=== PATIENT | male | born 1960 | race Two or more races ===

== ENCOUNTER 2019-02-03 09:56 | Inpatient (IN) | payer OTHER ==
[2019-02-03 11:27] VITALS: BMI 25.5
--- NOTE | 2019-02-03 12:58 | HP ---
CIWA Score Nausea/Vomitin-No Nausea/No Vomiting Muscle Tremors: 4-Moderate,w/Arms Extend Anxiety: 4-Mod. Anxious/Guarded Agitation: 4-Moderately Restless Paroxysmal Sweats: 3 Orientation: 0-Oriented Tacttile Disturbances: 0-None Auditory Disturbances: 0-None Visual Disturbances: 0-None Headache: 0-None Present CIWA-Ar Total Score: 15 - Admission Criteria OASAS Guidelines: Admission for Medically Managed Detox: Requires at least one of the followin. CIWA greater than 12 2. Seizures within the past 24 hours 3. Delirium tremens within the past 24 hours 4. Hallucinations within the past 24 hours 5. Acute intervention needed for co occurring medical disorder 6. Acute intervention needed for co occurring psychiatric disorder 7. Severe withdrawal that cannot be handled at a lower level of care (continued vomiting, continued diarrhea, abnormal vital signs) requiring intravenous medication and/or fluids 8. Admission ROS S - [facility] Chief Complaint: I am here to detox and stop drinking Allergies/Adverse Reactions: Allergies Allergy/AdvReac Type Severity Reaction Status Date / Time No Known Allergies Allergy Verified 10/24/13 13:55 History of Present Illness: Pt is a 58yrold male with a history of alcohol dependence seeking detox for treatment. Exam Limitations: No Limitations - Ebola screening Have you traveled outside of the country in the last 21 days: No (N) Have you had contact with anyone from an Ebola affected area: No Have you been sick,other than usual withdrawal symptoms: No Do you have a fever: No - Review of Systems Constitutional: Diaphoresis EENT: reports: No Symptoms Reported Respiratory: reports: No Symptoms reported Cardiac: reports: No Symptoms Reported GI: reports: Poor Appetite, Poor Fluid Intake : reports: No Symptoms Reported Musculoskeletal: reports: No Symptoms Reported Integumentary: reports: Bruising (to left lower chin, bump noted. pt states he fell yesterday and didnt have it checked out.) Neuro: reports: Tingling, Tremors Endocrine: reports: Flushing, Intolerance to Heat, Increased Hunger Hematology: reports: No Symptoms Reported Psychiatric: reports: Judgement Intact, Mood/Affect Appropiate, Orientated x3, Agitated, Anxious Other Systems: Reviewed and Negative Patient History - Patient Medical History Hx Anemia: No Hx Asthma: No Hx Chronic Obstructive Pulmonary Disease (COPD): No Hx Cancer: No Hx Cardiac Disorders: No Hx Congestive Heart Failure: No Hx Hypertension: Yes Hx Hypercholesterolemia: No Hx Pacemaker: No HX Cerebrovascular Accident: No Hx Seizures: No Hx Dementia: No Hx Diabetes: No Hx Gastrointestinal Disorders: No Hx Liver Disease: No Hx Genitourinary Disorders: No Hx Sexually Transmitted Disorders: No Hx Renal Disease (ESRD): No Hx Thyroid Disease: No Hx Human Immunodeficiency Virus (HIV): No (negative) Hx Hepatitis C: No (negative) Hx Depression: Yes Hx Suicide Attempt: No Hx Bipolar Disorder: No Hx Schizophrenia: No - Patient Surgical History Past Surgical History: Yes Other Surgical History: 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 History Hx Alcohol Use: Yes Hx Substance Use: No Substance Use Type: Alcohol Hx Substance Use Treatment: Yes (last detox 2013 [facility]) - Substances abused Alcohol Substance route: Oral Frequency: Daily Amount used: 3 pints vodka Age of first use: 29 Date of last use: 02/02/19 Family Disease History - Family Disease History Family History: Denies Admission Physical Exam S - Vital Signs Vital Signs: Vital Signs - 24 hr 02/03/19 11:22 Temperature 98 F Pulse Rate 99 H Respiratory 19 Rate Blood Pressure 151/80 - Physical General Appearance: Yes: Appropriately Dressed, Moderate Distress, Tremorous, Irritable, Sweating, Anxious HEENTM: Yes: Hearing grossly Normal, Normal Voice, Nasal Congestion, Rhinorrhea Respiratory: Yes: Lungs Clear, Normal Breath Sounds, No Respiratory Distress Neck: Yes: No masses,lesions,Nodules Breast: Yes: Surgical Scar Cardiology: Yes: Regular Rhythm, Surgical Scar Abdominal: Yes: Surgical Scar (pt has surgical scar from chest,abdominal d/t endosarcoma repair 2008) Genitourinary: Yes: Within Normal Limits Back: Yes: Normal Inspection Musculoskeletal: Yes: full range of Motion Extremities: Yes: Normal Capillary Refill, Non-Tender, Tremors Neurological: Yes: Fully Oriented, Alert, Normal Response Integumentary: Yes: Normal Color, Diaphoresis Lymphatic: Yes: Within Normal Limits - Diagnostic (1) Chondrosarcoma of ribs, sternum, 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 (2) Depression Current Visit: Yes Status: Chronic (3) Alcohol dependence with uncomplicated withdrawal Current Visit: Yes Status: Chronic (4) Nicotine dependence Current Visit: Yes Status: Chronic Qualifiers: Nicotine product type: cigarettes Substance use status: uncomplicated Qualified Code(s): F17.210 - Nicotine dependence, cigarettes, uncomplicated (5) Hypertension Current Visit: Yes Status: Chronic Qualifiers: Hypertension type: essential hypertension Qualified Code(s): I10 - Essential (primary) hypertension (6) Traumatic ecchymosis of left lower leg Current Visit: Yes Status: Acute Qualifiers: Encounter type: initial encounter Qualified Code(s): S80.12XA - Contusion of left lower leg, initial encounter Comment: pt states he fell yesterday. did not go to ed for evluation Cleared for Admission S - Detox or Rehab [facility] Level of Care: Medically Managed Detox Regimen/Protocol: Librium Breathalyzer - Breathalyzer Breathalyzer: 0.059 Urine Drug Screen - Test Device Lot number: [id number] Expiration date: 10/29/20 - Control Is test valid?: Yes - Results Drug screen NEGATIVE: Yes Inpatient Rehab Admission - Rehab Decision to Admit Inpatient rehab admission?: No
[2019-02-03] MEDS ORDERED: IBUPROFEN 400 MG TABLET (FP) PO PRN (13:14)
[2019-02-03] MEDS ORDERED: MAGNESIUM CITRATE 300 ML BOTTLE PO PRN (13:14)
[2019-02-03] MEDS ORDERED: BISMUTH SUBSALICYLATE 524 MG/30 ML UD PO PRN (13:14)
[2019-02-03] MEDS ORDERED: NICOTINE POLACRILEX 4 MG GUM BUC PRN (13:14)
[2019-02-03] MEDS ORDERED: ACETAMINOPHEN 325 MG TABLET (FP) PO PRN ×2 (13:14)
[2019-02-03] MEDS ORDERED: METHOCARBAMOL 500 MG TABLET PO PRN (13:14)
[2019-02-03] MEDS ORDERED: MENTHOL/PHENOL 1 EACH UD MM PRN (13:14)
[2019-02-03] MEDS ORDERED: MAGNESIUM HYDROX 2400MG/30ML ORAL SUSPENSION 30 ML CUP PO PRN (13:14)
[2019-02-03] MEDS ORDERED: chlordiazePOXIDE HCL 25 MG CAPSULE PO PRN (13:14)
[2019-02-03] MEDS ORDERED: hydrOXYzine PAMOATE 25 MG CAPSULE (FP) PO PRN (13:14)
[2019-02-03] MEDS ORDERED: MAG HYDROX/AL HYDROX/SIMETH 30 ML UNIT-DOSE CUP PO PRN (13:14)
[2019-02-03] MEDS ORDERED: ONDANSETRON *ODT* 4 MG TABLET SL PRN (13:14)
[2019-02-03] MEDS ORDERED: chlordiazePOXIDE HCL 25 MG CAPSULE PO ONE (14:15)
--- NOTE | 2019-02-03 14:43 | EKG ---
Test Reason : Blood Pressure : / mmHG Vent. Rate : 096 BPM Atrial Rate : 096 BPM P-R Int : 142 ms QRS Dur : 082 ms QT Int : 364 ms P-R-T Axes : 043 016 031 degrees QTc Int : 459 ms NORMAL SINUS RHYTHM NORMAL ECG NO PREVIOUS ECGS AVAILABLE Confirmed by JANET HENDRICKS, ALISIA ([id number]) on 02/03/2019 2:42:40 PM Referred By: Confirmed By:ALISIA GONZALES MD
[2019-02-03 16:39] LABS: HEMATOCRIT 46.7 % (35.4-49); HEMOGLOBIN 14.8 GM/dL (11.7-16.9); MCH 26.7 pg (25.7-33.7); MCHC 31.6 g/dl (32.0-35.9); MEAN CELL VOLUME 84.3 fl (80-96); MEAN PLT VOLUME 9.6 fl (7.5-11.1); PLATELET COUNT 227 K/MM3 (134-434); RBC 5.54 M/mm3 (4.00-5.60); RDW 14.4 % (11.9-15.9); WHITE BLOOD COUNT 10.9 K/mm3 (4.0-10.0)
[2019-02-03 16:41] LABS: ALBUMIN 4.3 g/dl (3.4-5.0); BILIRUBIN,TOTAL 0.4 mg/dL (0.2-1); CALCIUM 9.1 mg/dL (8.5-10.1); CREATININE 0.9 mg/dL (0.55-1.3); POTASSIUM 4.2 mmol/L (3.5-5.1)
--- NOTE | 2019-02-03 17:05 | PN ---
[facility] Progress Note Note: x-ray to left lower leg performed; no fx noted as per report. pt encouraged to apply ice pack as ordered and apply bacitracin oint.
[2019-02-03] MEDS: chlordiazePOXIDE HCL 25 MG CAPSULE PO SCH ×2 (17:45→22:20)
--- NOTE | 2019-02-03 18:00 | CONSULT ---
[facility] Psychiatric Consult - Data Date of interview: 02/03/19 Admission source: [facility] Identifying data: Readmission to [facility] for this 58 y/o [place]born male self-referred for detoxification (alcohol). Examined at [address] [place] [address]. Patient is , a father of two, homeless, unemployed and supported on [facility] benefits. Substance Abuse History: Confirmed by patient in this interview. Details in current [facility] report as follows : Smoking history: Current every day smoker. Have you smoked in the past 12 months: Yes. Aproximately how many cigarettes per day: 10. Cigars Per Day: 0. Hx Chewing Tobacco Use: No. Initiated information on smoking cessation: Yes. 'Breaking Loose' booklet given: . - Substance & Tx. History. Hx Alcohol Use: Yes. Hx Substance Use: No. Substance Use Type: Alcohol. Hx Substance Use Treatment: Yes (last detox 2014 [facility]). - Substances abused. Alcohol. Substance route: Oral. Frequency : Daily. Amount used: 3 pints vodka. Age of first use: 29. Date of last use: 02/02/19 Medical History: Remarkable for hypertension and history of 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 (2008). Psychiatric History: Patient admits to a history of [facility] hospital[facility] Diagnosed with MDD. Mr Garcia sees a psychiatrist for medication management at the [facility] clinic in the [place]. Medicated with seroquel and trazodone. Patient denies history of suicide attempts. Physical/Sexual Abuse/Trauma History: Patient denies. Additional Comment: Drug screen is negative. Mental Status Exam - Mental Status Exam Alert and Oriented to: Time, Place, Person Cognitive Function: Good Patient Appearance: Disheveled Mood: Nervous, Withdrawn, Anxious Affect: Mood Congruent, Constricted Patient Behavior: Fatigued, Appropriate, Cooperative Speech Pattern: Clear Voice Loudness: Moderately Soft/Quiet Thought Process: Goal Oriented Thought Disorder: Not Present Hallucinations: Denies Suicidal Ideation: Denies Homicidal Ideation: Denies Insight/Judgement: Poor Sleep: Poorly, Difficulty falling asleep Appetite: Good Muscle strength/Tone: Normal Gait/Station: Normal Psychiatric Findings - Problem List ([place] 1, 2,3) (1) Alcohol dependence with uncomplicated withdrawal Current Visit: Yes Status: Acute (2) Nicotine dependence Current Visit: Yes Status: Chronic Qualifiers: Nicotine product type: cigarettes Substance use status: uncomplicated Qualified Code(s): F17.210 - Nicotine dependence, cigarettes, uncomplicated (3) Substance induced mood disorder Current Visit: Yes Status: Chronic (4) History of depression Current Visit: Yes Status: Chronic (5) Insomnia Current Visit: Yes Status: Chronic - Initial Treatment Plan Initial Treatment Plan: Psychoeducation. Sleep hygiene. Detoxification. Medications : seroquel 100 mg po hs + trazodone 50 mg po hs. Side effects/ benefits of these dugs are discussed with patient. Made aware of the risk of metabolic syndrome, oversedation and priapism. Mr Jose endorses good response to this regimen and he insists on its continuation in hospital course. Observation. Medication reconciliation : NO home medications. External pharmacy activity revisited at [facility] # [id number] : noted refills for trazodone 100 mg/hs + seroquel 400 mg/hs + zoloft 100 mg/day dated 11/11/18. Call made to [facility] at : busy line/kept on indefinite hold.
[2019-02-03] MEDS: BACITRACIN 15 GM TUBE TOPICAL OINTMENT TP SCH (19:42)
[2019-02-03] MEDS ORDERED: METOPROLOL TARTRATE 50 MG TABLET (FP) PO ONE (19:42)
[2019-02-03] MEDS ORDERED: cloNIDine HCL 0.1 MG TABLET PO ONE (19:43)
[2019-02-03] MEDS: THIAMINE HCL 100 MG TABLET (FP) PO SCH (22:19)
[2019-02-03] MEDS: QUEtiapine FUMARATE 100 MG TABLET (FP) PO SCH (22:20)
[2019-02-03] MEDS: MELATONIN 5 MG TABLETS PO PRN (22:20)
[2019-02-03] MEDS: traZODone HCL 50 MG TABLET (FP) PO SCH (22:20)
[2019-02-04] MEDS: chlordiazePOXIDE HCL 25 MG CAPSULE PO SCH ×4 (07:06→22:29)
[2019-02-04] MEDS: PANTOPRAZOLE 40 MG TABLET (FP) PO SCH (10:45)
[2019-02-04] MEDS: NICOTINE 21 MG/24 HOURS TOPICAL PATCH TD SCH (10:45)
[2019-02-04] MEDS: METOPROLOL TARTRATE 50 MG TABLET (FP) PO SCH (10:45)
[2019-02-04] MEDS: PRENATAL VITAMINS W/ FOLIC ACID TABLET (FP) PO SCH (10:46)
[2019-02-04] MEDS: BACITRACIN 15 GM TUBE TOPICAL OINTMENT TP SCH (10:46)
--- NOTE | 2019-02-04 17:02 | PN ---
[facility] CIWA - CIWA Score Nausea/Vomitin-No Nausea/No Vomiting Muscle Tremors: 4-Moderate,w/Arms Extend Anxiety: 3 Agitation: 0-Normal Activity Paroxysmal Sweats: No Perspiration Orientation: 0-Oriented Tacttile Disturbances: 0-None Auditory Disturbances: 2-Mild Harshness/Frighten Visual Disturbances: 2-Mild Sensitivity Headache: 0-None Present CIWA-Ar Total Score: 11 S Progress Note (SOAP) Subjective: Body Aches, Tremors. Objective: PATIENT A & O X 3. IN NO ACUTE DISTRESS. 02/04/19 17:00 Vital Signs Temperature 97.7 F 02/04/19 14:18 Pulse Rate 72 02/04/19 14:18 Respiratory Rate 18 02/04/19 14:18 Blood Pressure 117/85 02/04/19 14:18 O2 Sat by Pulse Oximetry (%) Laboratory Tests 02/03/19 02/03/19 02/03/19 13:30 13:30 13:30 WBC 10.9 H RBC 5.54 Hgb 14.8 Hct 46.7 MCV 84.3 MCH 26.7 MCHC 31.6 L RDW 14.4 Plt Count 227 MPV 9.6 D Sodium 137 Potassium 4.2 Chloride 100 Carbon Dioxide 25 Anion Gap 12 BUN 13 Creatinine 0.9 Est GFR (CKD-EPI)AfAm 107.97 Est GFR (CKD-EPI)NonAf 93.16 Random Glucose 110 H Calcium 9.1 Total Bilirubin 0.4 AST 18 ALT 31 Alkaline Phosphatase 103 Total Protein 9.0 H Albumin 4.3 RPR Titer Nonreactive LABS NOTED. Assessment: 02/04/19 17:00 WITHDRAWAL SYMPTOMS. LEUKOCYTOSIS. Plan: CONTINUE DETOX. INCREASE DAILY PO FLUID / WATER INTAKE. REPEAT CBC TOMORROW AM FOR ELEVATED WBC LEVEL NOTED ON DETOX ADMISSION.
[2019-02-04] MEDS: THIAMINE HCL 100 MG TABLET (FP) PO SCH (22:29)
[2019-02-04] MEDS: traZODone HCL 50 MG TABLET (FP) PO SCH (22:29)
[2019-02-04] MEDS: QUEtiapine FUMARATE 100 MG TABLET (FP) PO SCH (22:29)
[2019-02-04] MEDS: MELATONIN 5 MG TABLETS PO PRN (22:30)
[2019-02-05] MEDS: chlordiazePOXIDE HCL 25 MG CAPSULE PO SCH ×2 (05:36→11:21)
[2019-02-05] MEDS: PANTOPRAZOLE 40 MG TABLET (FP) PO SCH (11:21)
[2019-02-05] MEDS: NICOTINE 21 MG/24 HOURS TOPICAL PATCH TD SCH (11:22)
[2019-02-05] MEDS: BACITRACIN 15 GM TUBE TOPICAL OINTMENT TP SCH (11:22)
[2019-02-05] MEDS: PRENATAL VITAMINS W/ FOLIC ACID TABLET (FP) PO SCH (11:22)
[2019-02-05] MEDS: METOPROLOL TARTRATE 50 MG TABLET (FP) PO SCH (11:22)
--- NOTE | 2019-02-05 17:26 | PN ---
[facility] CIWA - CIWA Score Nausea/Vomitin-No Nausea/No Vomiting Muscle Tremors: 2 Anxiety: 3 Agitation: 0-Normal Activity Paroxysmal Sweats: No Perspiration Orientation: 0-Oriented Tacttile Disturbances: 2-Mild Itch/Numbness/Burn Auditory Disturbances: 0-None Visual Disturbances: 2-Mild Sensitivity Headache: 0-None Present CIWA-Ar Total Score: 9 BHS Progress Note (SOAP) Subjective: Body Aches, Anxious, Tremors. Objective: PATIENT A & O X 3, OBSERVED AMBULATING ON UNIT UNASSISTED. IN NO ACUTE DISTRESS. PATIENT AFEBRILE. 02/05/19 17:25 Vital Signs Temperature 97.2 F L 02/05/19 13:14 Pulse Rate 89 02/05/19 13:14 Respiratory Rate 16 02/05/19 13:14 Blood Pressure 124/89 02/05/19 13:14 O2 Sat by Pulse Oximetry (%) Laboratory Tests 02/03/19 02/03/19 02/03/19 13:30 13:30 13:30 WBC 10.9 H RBC 5.54 Hgb 14.8 Hct 46.7 MCV 84.3 MCH 26.7 MCHC 31.6 L RDW 14.4 Plt Count 227 MPV 9.6 D Sodium 137 Potassium 4.2 Chloride 100 Carbon Dioxide 25 Anion Gap 12 BUN 13 Creatinine 0.9 Est GFR (CKD-EPI)AfAm 107.97 Est GFR (CKD-EPI)NonAf 93.16 Random Glucose 110 H Calcium 9.1 Total Bilirubin 0.4 AST 18 ALT 31 Alkaline Phosphatase 103 Total Protein 9.0 H Albumin 4.3 RPR Titer Nonreactive LABS NOTED. 02/05/19 17:31 Assessment: 02/05/19 17:25 WITHDRAWAL SYMPTOMS. LEUKOCYTOSIS. 02/05/19 17:27 Plan: CONTINUE DETOX. REPEAT CBC FOR TOMORROW FOR ELEVATED ADMISSION WBC LEVEL. PATIENT REPORTS PAIN IN LOWER LEFT LEG DUE TO FALL THAT HE HAD ON STEPS IN [place] STATION PRIOR TO ADMISSION TO DETOX. X-RAY OF LEFT LEG DONE AT [facility] ER - NEGATIVE FOR ACUTE LEFT LEG PATHOLOGY. SWELLING NOTED IN LOWER LEFT LEG WITH SMALL HEALING, SCABBING WOUND NOTED ON TIBIA SLIGHTLY BELOW LEFT KNEE AREA. NO ERYTHEMA OR UNUSUAL DISCHARGE NOTED IN LEFT LOWER LEG. PATIENT ADVISED APPLY R.I.C.E. PROTOCOL: TO KEEP LEFT LEG ELEVATED IN BED MUCH POSSIBLE FOR TIME BEING AND TO APPLY ICE A FEW TIMES THROUGHOUT DAY. PATIENT ADVISED TO FOLLOW-UP WITH MOVEMENT THERAPIST AFTER DISCHARGE FROM DETOX UNIT FOR FURTHER EVALUATION OF LEFT LEG. PATIENT VERBALIZED UNDERSTANDING OF ALL RECOMMENDATION PRESENTED TO HIM.
[2019-02-05] MEDS: chlordiazePOXIDE HCL 10 MG CAPSULE PO SCH ×2 (17:27→22:10)
[2019-02-05] MEDS: THIAMINE HCL 100 MG TABLET (FP) PO SCH (22:09)
[2019-02-05] MEDS: traZODone HCL 50 MG TABLET (FP) PO SCH (22:09)
[2019-02-05] MEDS: QUEtiapine FUMARATE 100 MG TABLET (FP) PO SCH (22:10)
[2019-02-06] MEDS: chlordiazePOXIDE HCL 10 MG CAPSULE PO SCH ×2 (06:03→10:43)
[2019-02-06 06:19] VITALS: BP 140/94; PULSE 101; TEMP 97.5
[2019-02-06] MEDS: PRENATAL VITAMINS W/ FOLIC ACID TABLET (FP) PO SCH (10:43)
[2019-02-06] MEDS: METOPROLOL TARTRATE 50 MG TABLET (FP) PO SCH (10:43)
[2019-02-06] MEDS: BACITRACIN 15 GM TUBE TOPICAL OINTMENT TP SCH (10:43)
[2019-02-06] MEDS: NICOTINE 21 MG/24 HOURS TOPICAL PATCH TD SCH (10:43)
[2019-02-06] MEDS: PANTOPRAZOLE 40 MG TABLET (FP) PO SCH (10:43)
--- NOTE | 2019-02-06 13:01 | DS ---
[facility] Detox Discharge Summary Admission Date: 02/03/19 Discharge Date: 02/06/19 (Pt left AMA) - History Present History: Alcohol Dependence Additional Comments: Pt left AMA. Pt did not complete his detox protocol. Pt stated he has to leave because he has to take care of something. Attempt to let pt stay and complete his detox protocol failed. Pt is encouraged to follow-up with his PMD and also follow-up with [facility] outpatient program. Pt is AOx3, in no respiratory distress. Pertinent Past History: H/o HTN and alcohol use disorder. - Physical Exam Results Vital Signs: Vital Signs Temperature 97.5 F L 02/06/19 06:19 Pulse Rate 101 H 02/06/19 06:19 Respiratory Rate 18 02/06/19 06:19 Blood Pressure 140/94 02/06/19 06:19 O2 Sat by Pulse Oximetry (%) Lab Results WBC 10.9 K/mm3 (4.0-10.0) H 02/03/19 13:30 RBC 5.54 M/mm3 (4.00-5.60) 02/03/19 13:30 Hgb 14.8 GM/dL (11.7-16.9) 02/03/19 13:30 Hct 46.7 % (35.4-49) 02/03/19 13:30 MCV 84.3 fl (80-96) 02/03/19 13:30 MCHC 31.6 g/dl (32.0-35.9) L 02/03/19 13:30 RDW 14.4 % (11.9-15.9) 02/03/19 13:30 Plt Count 227 K/MM3 (134-434) 02/03/19 13:30 Sodium 137 mmol/L (136-145) 02/03/19 13:30 Potassium 4.2 mmol/L (3.5-5.1) 02/03/19 13:30 Chloride 100 mmol/L (98-107) 02/03/19 13:30 Carbon Dioxide 25 mmol/L (21-32) 02/03/19 13:30 Anion Gap 12 MMOL/L (8-16) 02/03/19 13:30 BUN 13 mg/dL (7-18) 02/03/19 13:30 Creatinine 0.9 mg/dL (0.55-1.3) 02/03/19 13:30 Random Glucose 110 mg/dL (74-106) H 02/03/19 13:30 Calcium 9.1 mg/dL (8.5-10.1) 02/03/19 13:30 Labs noted. Pertinent Admission Physical Exam Findings: withdrawal symptoms. - Treatment Hospital Course: Detox Protocol Followed - Medication Discharge Medications: Ambulatory Orders Omeprazole [Prilosec (RX)] 20 mg PO DAILY 10/24/13 Metoprolol Tartrate 100 mg PO DAILY 02/03/19 - Diagnosis (1) Alcohol dependence with uncomplicated withdrawal Current Visit: Yes Status: Acute (2) Hypertension Current Visit: Yes Status: Chronic Qualifiers: Hypertension type: essential hypertension Qualified Code(s): I10 - Essential (primary) hypertension (3) Nicotine dependence Current Visit: Yes Status: Chronic Qualifiers: Nicotine product type: cigarettes Substance use status: uncomplicated Qualified Code(s): F17.210 - Nicotine dependence, cigarettes, uncomplicated - AMA Did Patient Leave Against Medical Advice: Yes
[2019-02-06] MEDS ORDERED: chlordiazePOXIDE HCL 10 MG CAPSULE PO SCH (17:00)
== END 2019-02-06 09:50 | disposition left against medical advice (07) | DRG 894 ==
LOC: YASAS 09:56 → Y3N 13:15
PROVIDERS: ADMIT Surgery; ATTEND Surgery
PROC: HZ2ZZZZ Detoxification Services for Substance Abuse Treatment (ICD-10-PCS; principal; 2019-02-03)
DX: F10.230 Alcohol dependence with withdrawal, uncomplicated (principal); F17.210 Nicotine dependence, cigarettes, uncomplicated; F19.24 Other psychoactive substance dependence with psychoactive substance-induced mood disorder; F32.9 Major depressive disorder, single episode, unspecified; I10 Essential (primary) hypertension; D72.828 Other elevated white blood cell count; G47.00 Insomnia, unspecified
CPT/HCPCS: 36415; 73590-TC-LT-FY; 80053; 85027; 86593; 93005; 93010

== ENCOUNTER 2019-04-18 09:11 | Inpatient (IN) | payer OTHER ==
[2019-04-18 09:40] VITALS: BMI 25.4
--- NOTE | 2019-04-18 11:21 | HP ---
CIWA Score Nausea/Vomitin Muscle Tremors: 3 Anxiety: 2 Agitation: 2 Paroxysmal Sweats: 1-Minimal Palms Moist Orientation: 0-Oriented Tacttile Disturbances: 1-Very Mild Itch/Numbness Auditory Disturbances: 0-None Visual Disturbances: 0-None Headache: 2-Mild CIWA-Ar Total Score: 13 - Admission Criteria OASAS Guidelines: Admission for Medically Managed Detox: Requires at least one of the followin. CIWA greater than 12 2. Seizures within the past 24 hours 3. Delirium tremens within the past 24 hours 4. Hallucinations within the past 24 hours 5. Acute intervention needed for co occurring medical disorder 6. Acute intervention needed for co occurring psychiatric disorder 7. Severe withdrawal that cannot be handled at a lower level of care (continued vomiting, continued diarrhea, abnormal vital signs) requiring intravenous medication and/or fluids 8. Admission ROS [facility] - HPI Chief Complaint: i need help to stop drinking alcohol Allergies/Adverse Reactions: Allergies Allergy/AdvReac Type Severity Reaction Status Date / Time No Known Allergies Allergy Verified 04/18/19 09:29 History of Present Illness: this 59 years old male with alcohol dependence,seeking detox,withdrawal symptom, seen in [place] last night history of hypertension syncope no seizure hypertension on med nicotine 1 or 2 cigarette/day had chondrocsarcoma right chest wall ,mojor radical resectionl at [place] in 2008 multiple admissions in detox,last [facility] 02/03/19 to 02/06/18 no significant period of sobriety plan for rehab after detox [facility] Exam Limitations: No Limitations - Ebola screening Have you traveled outside of the country in the last 21 days: No (N) Have you had contact with anyone from an Ebola affected area: No Do you have a fever: No - Review of Systems Constitutional: Malaise, Night Sweats, Changes in sleep EENT: reports: Nose Congestion Respiratory: reports: No Symptoms reported Cardiac: reports: No Symptoms Reported GI: reports: Nausea, Poor Appetite, Indigestion : reports: No Symptoms Reported Integumentary: reports: Dryness Neuro: reports: Headache, Seizure Endocrine: reports: No Symptoms Reported Hematology: reports: No Symptoms Reported Psychiatric: reports: No Sypmtoms Reported, Judgement Intact, Mood/Affect Appropiate, Orientated x3 (insomnia) Other Systems: Reviewed and Negative Patient History - Patient Medical History Hx Anemia: No Hx Asthma: No Hx Chronic Obstructive Pulmonary Disease (COPD): No Hx Cancer: No Hx Cardiac Disorders: No Hx Congestive Heart Failure: No Hx Hypertension: Yes (on meds) Hx Hypercholesterolemia: No Hx Pacemaker: No HX Cerebrovascular Accident: No Hx Seizures: No Hx Dementia: No Hx Diabetes: No Hx Gastrointestinal Disorders: No Hx Liver Disease: No Hx Genitourinary Disorders: No Hx Sexually Transmitted Disorders: No Hx Renal Disease (ESRD): No Hx Thyroid Disease: No Hx Human Immunodeficiency Virus (HIV): No (negative 09/19) Hx Hepatitis C: No (negative) Hx Depression: Yes Hx Suicide Attempt: No Hx Bipolar Disorder: No Hx Schizophrenia: No Other Medical History: insomnia,no suicida,no homicidal,major surgery for chondrosarcoma od right - Patient Surgical History Past Surgical History: Yes Other Surgical History: 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 History Hx Alcohol Use: Yes Hx Substance Use: No Substance Use Type: Alcohol Hx Substance Use Treatment: Yes ([facility] 02/03/19 to 02/06/19) - Substances abused Alcohol Substance route: Oral Frequency: Daily Amount used: 3 pints vodka and fern Age of first use: 29 Date of last use: 04/17/19 Family Disease History - Family Disease History Family History: Denies Admission Physical Exam [facility] - Vital Signs Vital Signs: Vital Signs - 24 hr 04/18/19 09:30 Temperature 97.4 F L Pulse Rate 78 Respiratory 18 Rate Blood Pressure 158/104 H - Physical General Appearance: Yes: Moderate Distress, Tremorous, Irritable, Sweating, Anxious HEENTM: Yes: Normal ENT Inspection, BUDDY, Pharynx Normal Respiratory: Yes: Lungs Clear, Normal Breath Sounds, No Respiratory Distress, Surgical Scar (scar in right chest and abdomen) Neck: Yes: Within Normal Limits, Supple, Trachea in good position Breast: Yes: Within Normal Limits Cardiology: Yes: Within Normal Limits, Regular Rhythm, Regular Rate, S1, S2 Abdominal: Yes: Within Normal Limits, Normal Bowel Sounds, Non Tender, Flat, Surgical Scar Genitourinary: Yes: Within Normal Limits Back: Yes: Muscle Spasm Musculoskeletal: Yes: Back pain, Muscle Pain Extremities: Yes: Normal Range of Motion, Tremors Neurological: Yes: mutuel teller II-XII NML intact, Alert, Motor Strength 5/5 Integumentary: Yes: Dry Lymphatic: Yes: Within Normal Limits - Diagnostic (1) Alcohol dependence with uncomplicated withdrawal Status: Acute (2) Chondrosarcoma of ribs, sternum, or clavicle Status: Chronic (3) Depression Status: Chronic (4) Hypertension Status: Chronic Qualifiers: Hypertension type: essential hypertension Qualified Code(s): I10 - Essential (primary) hypertension (5) Insomnia Status: Chronic (6) Nicotine dependence Status: Acute Qualifiers: Nicotine product type: cigarettes Substance use status: in withdrawal Qualified Code(s): F17.213 - Nicotine dependence, cigarettes, with withdrawal (7) Syncope Status: Acute (8) Borderline diabetes mellitus Status: Acute Cleared for Admission S - Detox or Rehab [facility] Level of Care: Medically Managed Detox Regimen/Protocol: Librium Breathalyzer - Breathalyzer Breathalyzer: 0.059 Urine Drug Screen - Test Device Lot number: [id number] Expiration date: 10/29/20 - Control Is test valid?: Yes - Results Drug screen NEGATIVE: Yes Inpatient Rehab Admission - Rehab Decision to Admit Inpatient rehab admission?: No
[2019-04-18] MEDS ORDERED: METHOCARBAMOL 500 MG TABLET PO PRN (11:30)
[2019-04-18] MEDS ORDERED: chlordiazePOXIDE HCL 25 MG CAPSULE PO PRN (11:30)
[2019-04-18] MEDS ORDERED: MELATONIN 5 MG TABLETS PO PRN (11:30)
[2019-04-18] MEDS ORDERED: MAGNESIUM HYDROX 2400MG/30ML ORAL SUSPENSION 30 ML CUP PO PRN (11:30)
[2019-04-18] MEDS ORDERED: MAG HYDROX/AL HYDROX/SIMETH 30 ML UNIT-DOSE CUP PO PRN (11:30)
[2019-04-18] MEDS ORDERED: IBUPROFEN 400 MG TABLET (FP) PO PRN (11:30)
[2019-04-18] MEDS ORDERED: ACETAMINOPHEN 325 MG TABLET (FP) PO PRN ×2 (11:30)
[2019-04-18] MEDS ORDERED: hydrOXYzine PAMOATE 25 MG CAPSULE (FP) PO PRN (11:30)
[2019-04-18] MEDS ORDERED: MAGNESIUM CITRATE 300 ML BOTTLE PO PRN (11:30)
[2019-04-18] MEDS ORDERED: BISMUTH SUBSALICYLATE 524 MG/30 ML UD PO PRN (11:30)
[2019-04-18] MEDS ORDERED: MENTHOL/PHENOL 1 EACH UD MM PRN (11:30)
[2019-04-18] MEDS: METOPROLOL TARTRATE 50 MG TABLET (FP) PO SCH (12:41)
[2019-04-18] MEDS: chlordiazePOXIDE HCL 25 MG CAPSULE PO SCH ×2 (17:41→22:50)
[2019-04-18] MEDS: THIAMINE HCL 100 MG TABLET (FP) PO SCH (22:50)
[2019-04-19] MEDS: chlordiazePOXIDE HCL 25 MG CAPSULE PO SCH ×4 (05:44→22:16)
[2019-04-19] MEDS: PRENATAL VITAMINS W/ FOLIC ACID TABLET (FP) PO SCH (10:21)
[2019-04-19] MEDS: METOPROLOL TARTRATE 50 MG TABLET (FP) PO SCH (10:22)
--- NOTE | 2019-04-19 10:58 | PN ---
[facility] CIWA - CIWA Score Nausea/Vomitin-Mild Nausea/No Vomiting Muscle Tremors: 3 Anxiety: 3 Agitation: 1-Slight > Activity Paroxysmal Sweats: 2 Orientation: 0-Oriented Tacttile Disturbances: 1-Very Mild Itch/Numbness Auditory Disturbances: 0-None Visual Disturbances: 0-None Headache: 1-Very Mild CIWA-Ar Total Score: 12 [facility] Progress Note (SOAP) Subjective: 59 years old male admitted on 04/18/19 for acute alcohol withdrawal sx management doing well with [facility] detox regimen less tremor today long history of hypertension gerd hyper lipidemia begin metoprolol lipitor and zantac discontinue motrin Objective: 04/19/19 11:07 Vital Signs Temperature 97.5 F L 04/19/19 09:12 Pulse Rate 79 04/19/19 09:12 Respiratory Rate 18 04/19/19 09:12 Blood Pressure 153/97 04/19/19 09:12 O2 Sat by Pulse Oximetry (%) lab pending Assessment: 04/19/19 11:07 alcohol withdrawal sx alert oriented x 3
[2019-04-19 12:26] LABS: BILIRUBIN,TOTAL 0.8 mg/dL (0.2-1); BLOOD UREA NITROGEN 12.5 mg/dL (7-18); CALCIUM 8.9 mg/dL (8.5-10.1); HEMATOCRIT 40.7 % (35.4-49); HEMOGLOBIN 13.4 GM/dL (11.7-16.9); MCH 27.5 pg (25.7-33.7); MCHC 32.8 g/dl (32.0-35.9); MEAN CELL VOLUME 83.7 fl (80-96); MEAN PLT VOLUME 9.7 fl (7.5-11.1); PLATELET COUNT 193 K/MM3 (134-434); RBC 4.87 M/mm3 (4.00-5.60); RDW 14.6 % (11.9-15.9); TOT PROT 8.1 g/dl (6.4-8.2); WHITE BLOOD COUNT 7.9 K/mm3 (4.0-10.0)
[2019-04-19] MEDS: metoPROLOL SUCCINATE 25 MG TAB.SR.24H (FP) PO SCH (13:25)
[2019-04-19] MEDS: RANITIDINE HCL 150 MG TABLET (FP) PO SCH ×2 (13:25→22:14)
--- NOTE | 2019-04-19 15:25 | CONSULT ---
[facility] Psychiatric Consult - Data Date of interview: 04/19/19 Admission source: [facility] Identifying data: Third admission to [facility] for this 59 y/o [place]-born male self-referred for detoxification (alcohol). Examined at [address] [place] [address]. Patient is , a father of two, homeless, unemployed and supported on [facility] benefits. Substance Abuse History: Confirmed by patient. Details in current [facility] report as follows : Smoking history: Current every day smoker. Have you smoked in the past 12 months: Yes. Aproximately how many cigarettes per day: 3. Cigars Per Day: 0. Hx Chewing Tobacco Use: No. Initiated information on smoking cessation : Yes. 'Breaking Loose' booklet given: 04/18/19. - Substance & Tx. History. Hx Alcohol Use: Yes. Hx Substance Use: No. Substance Use Type: Alcohol. Hx Substance Use Treatment: Yes ([facility] 02/03/19 to 02/06/19). - Substances abused. Alcohol. Substance route: Oral. Frequency: Daily. Amount used: 3 pints vodka and fern. Age of first use: 29. 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 Psychiatric History: Patient endorses a history of psychiatric hospitalizations ([facility], [facility]). Diagnosed with MDD. Mr Garcia sees a psychiatrist for medication management at the [facility] in the [place]. He is prescribed a regimen of seroquel 200 mg/hs + trazodone 150 mg/hs + zoloft 100 mg/day (confirmed by refills of 04/08/19 at [facility] # [id number]). Patient denies history of suicide attempts. Physical/Sexual Abuse/Trauma History: Patient denies history of abuse. Stressors : estrangement from relatives, homelessness, financial difficulties, alcohol addiction, loneliness and medical issues. Additional Comment: Drug screen is negative. Mental Status Exam - Mental Status Exam Alert and Oriented to: Time, Place, Person Cognitive Function: Good Patient Appearance: Well Groomed Mood: Sad, Nervous, Withdrawn Affect: Mood Congruent, Constricted Patient Behavior: Fatigued, Appropriate, Cooperative Speech Pattern: Clear, Appropriate Voice Loudness: Normal Thought Process: Intact, Goal Oriented Thought Disorder: Not Present Hallucinations: Denies Suicidal Ideation: Denies Homicidal Ideation: Denies Insight/Judgement: Poor Sleep: Poorly, Difficulty falling asleep Appetite: Good Muscle strength/Tone: Normal Gait/Station: Normal Psychiatric Findings - Problem List ([place] 1, 2,3) (1) Alcohol dependence with uncomplicated withdrawal Current Visit: Yes Status: Acute (2) Nicotine dependence Current Visit: Yes Status: Chronic Qualifiers: Nicotine product type: cigarettes Substance use status: uncomplicated Qualified Code(s): F17.210 - Nicotine dependence, cigarettes, uncomplicated (3) Substance induced mood disorder Current Visit: Yes Status: Chronic (4) Depressive disorder Current Visit: Yes Status: Acute Comment: As per history. On medications. patient is followed at [facility] in the [place]. (5) Insomnia Current Visit: Yes Status: Chronic - Initial Treatment Plan Initial Treatment Plan: Psychoeducation. Sleep hygiene. Detoxification. Support. Relapse prevention (MAT) revisited with the patient. AA meetings. Motivational counseling. Medications resumed as mentioned in Psychiatric History section (see orders). Informed consent (verbal) obtained from the patient. Observation.
[2019-04-19 17:02] LABS: URINE APPEARANCE CLEAR; URINE BILIRUBIN NEGATIVE (NEGATIVE); URINE COLOR YELLOW; URINE GLUCOSE (UA) NEGATIVE (NEGATIVE); URINE KETONE NEGATIVE (NEGATIVE); URINE LEUK ESTERASE NEGATIVE (NEGATIVE); URINE NITRITE NEGATIVE (NEGATIVE); URINE PROTEIN NEGATIVE (NEGATIVE)
[2019-04-19] MEDS: THIAMINE HCL 100 MG TABLET (FP) PO SCH (22:13)
[2019-04-19] MEDS: traZODone HCL 50 MG TABLET (FP) PO SCH (22:14)
[2019-04-19] MEDS: QUEtiapine FUMARATE 100 MG TABLET (FP) PO SCH (22:14)
[2019-04-19] MEDS: ATORVASTATIN CA 10 MG TABLET (FP) PO SCH (22:14)
[2019-04-20] MEDS: chlordiazePOXIDE HCL 25 MG CAPSULE PO SCH ×4 (06:51→22:12)
--- NOTE | 2019-04-20 10:32 | PN ---
[facility] CIWA - CIWA Score Nausea/Vomitin-No Nausea/No Vomiting Muscle Tremors: 3 Anxiety: 2 Agitation: 2 Paroxysmal Sweats: 1-Minimal Palms Moist Orientation: 0-Oriented Tacttile Disturbances: 0-None Auditory Disturbances: 0-None Visual Disturbances: 0-None Headache: 0-None Present CIWA-Ar Total Score: 8 S Progress Note (SOAP) Subjective: doing well with librium detox regimen sleep better at night less tremor seen by psychiatrist no medical intervention at this time long history of hypertension treated wtih metoprolol 100 mg po daily bp remain elevated addition 25 mg was added on 04/19/19 combined with librium divided metoprolol into 50 mg po bid begin 04/21/19 denies dizziness no trouble breathing ambulating on hallway tolerate food anf lluid well Objective: 04/20/19 10:44 Vital Signs Temperature 96.6 F L 04/20/19 10:09 Pulse Rate 102 H 04/20/19 10:09 Respiratory Rate 19 04/20/19 10:09 Blood Pressure 100/69 04/20/19 10:09 O2 Sat by Pulse Oximetry (%) Laboratory Last Values WBC 7.9 K/mm3 (4.0-10.0) 04/19/19 07:30 RBC 4.87 M/mm3 (4.00-5.60) 04/19/19 07:30 Hgb 13.4 GM/dL (11.7-16.9) 04/19/19 07:30 Hct 40.7 % (35.4-49) 04/19/19 07:30 MCV 83.7 fl (80-96) 04/19/19 07:30 MCH 27.5 pg (25.7-33.7) 04/19/19 07:30 MCHC 32.8 g/dl (32.0-35.9) 04/19/19 07:30 RDW 14.6 % (11.9-15.9) 04/19/19 07:30 Plt Count 193 K/MM3 (134-434) 04/19/19 07:30 MPV 9.7 fl (7.5-11.1) 04/19/19 07:30 Sodium 139 mmol/L (136-145) 04/19/19 07:30 Potassium 4.0 mmol/L (3.5-5.1) 04/19/19 07:30 Chloride 103 mmol/L (98-107) 04/19/19 07:30 Carbon Dioxide 27 mmol/L (21-32) 04/19/19 07:30 Anion Gap 9 MMOL/L (8-16) 04/19/19 07:30 BUN 12.5 mg/dL (7-18) 04/19/19 07:30 Creatinine 1.0 mg/dL (0.55-1.3) 04/19/19 07:30 Est GFR (CKD-EPI)AfAm 94.39 04/19/19 07:30 Est GFR (CKD-EPI)NonAf 81.44 04/19/19 07:30 POC Glucometer 117 UNITS (80-120) 04/19/19 16:26 Random Glucose 94 mg/dL (74-106) 04/19/19 07:30 Calcium 8.9 mg/dL (8.5-10.1) 04/19/19 07:30 Total Bilirubin 0.8 mg/dL (0.2-1) 04/19/19 07:30 AST 15 U/L (15-37) 04/19/19 07:30 ALT 29 U/L (13-61) 04/19/19 07:30 Alkaline Phosphatase 92 U/L (45-117) 04/19/19 07:30 Total Protein 8.1 g/dl (6.4-8.2) 04/19/19 07:30 Albumin 4.0 g/dl (3.4-5.0) 04/19/19 07:30 Urine Color Yellow 04/19/19 12:30 Urine Appearance Clear 04/19/19 12:30 Urine pH 8.0 (5.0-8.0) 04/19/19 12:30 Ur Specific [place] 1.016 (1.010-1.035) 04/19/19 12:30 Urine Protein Negative (NEGATIVE) 04/19/19 12:30 Urine Glucose (UA) Negative (NEGATIVE) 04/19/19 12:30 Urine Ketones Negative (NEGATIVE) 04/19/19 12:30 Urine Blood Negative (NEGATIVE) 04/19/19 12:30 Urine Nitrite Negative (NEGATIVE) 04/19/19 12:30 Urine Bilirubin Negative (NEGATIVE) 04/19/19 12:30 Urine Urobilinogen 1.0 mg/dL (0.2-1.0) 04/19/19 12:30 Ur Leukocyte Esterase Negative (NEGATIVE) 04/19/19 12:30 RPR Titer Nonreactive (NONREACTIVE) 04/19/19 07:30 lab noted encourage oral fluid Assessment: 04/20/19 10:44 alcohol withdrawal sx alert oriented x 3 04/20/19 10:45 S1S2 Regular no chest pain no wheezing Plan: continue librium detox regimen
[2019-04-20] MEDS ORDERED: metoPROLOL SUCCINATE 25 MG TAB.SR.24H (FP) PO SCH (10:36)
[2019-04-20] MEDS ORDERED: METOPROLOL TARTRATE 25 MG TABLET (FP) PO ONE (10:48)
[2019-04-20] MEDS: PRENATAL VITAMINS W/ FOLIC ACID TABLET (FP) PO SCH (10:51)
[2019-04-20] MEDS: SERTRALINE HCL 50 MG TABLET (FP) PO SCH (10:51)
[2019-04-20] MEDS: RANITIDINE HCL 150 MG TABLET (FP) PO SCH ×2 (10:51→21:05)
[2019-04-20] MEDS: METOPROLOL TARTRATE 50 MG TABLET (FP) PO SCH (11:02)
[2019-04-20] MEDS: metoPROLOL SUCCINATE 25 MG TAB.SR.24H (FP) PO SCH (11:02)
[2019-04-20] MEDS ORDERED: METOPROLOL TARTRATE 50 MG TABLET (FP) PO SCH (11:35)
[2019-04-20] MEDS ORDERED: METOPROLOL TARTRATE 50 MG TABLET (FP) PO ONE (11:35)
[2019-04-20] MEDS: traZODone HCL 50 MG TABLET (FP) PO SCH (21:04)
[2019-04-20] MEDS: QUEtiapine FUMARATE 100 MG TABLET (FP) PO SCH (21:04)
[2019-04-20] MEDS: ATORVASTATIN CA 10 MG TABLET (FP) PO SCH (21:05)
[2019-04-20] MEDS: THIAMINE HCL 100 MG TABLET (FP) PO SCH (21:05)
[2019-04-21] MEDS ORDERED: chlordiazePOXIDE HCL 10 MG CAPSULE PO PRN
[2019-04-21] MEDS: chlordiazePOXIDE HCL 10 MG CAPSULE PO SCH ×2 (05:44→10:46)
[2019-04-21] MEDS ORDERED: METOPROLOL TARTRATE 50 MG TABLET (FP) PO SCH (10:00)
[2019-04-21] MEDS: RANITIDINE HCL 150 MG TABLET (FP) PO SCH (10:46)
[2019-04-21] MEDS: SERTRALINE HCL 50 MG TABLET (FP) PO SCH (10:46)
[2019-04-21] MEDS: PRENATAL VITAMINS W/ FOLIC ACID TABLET (FP) PO SCH (10:46)
--- NOTE | 2019-04-21 10:48 | PN ---
S CIWA - CIWA Score Nausea/Vomitin-No Nausea/No Vomiting Muscle Tremors: 2 Anxiety: 1-Mildly Anxious Agitation: 1-Slight > Activity Paroxysmal Sweats: 1-Minimal Palms Moist Orientation: 0-Oriented Tacttile Disturbances: 0-None Auditory Disturbances: 0-None Visual Disturbances: 0-None Headache: 0-None Present CIWA-Ar Total Score: 5 BHS Progress Note (SOAP) Subjective: doing well wt libirum detox regimen resting on bed comfortably feeling tired today that had hard to fall asleep last night monitoring metoprolol 50 mg po bid in divided dosage Objective: 04/21/19 10:52 Vital Signs Temperature 97.8 F 04/21/19 09:30 Pulse Rate 85 04/21/19 09:30 Respiratory Rate 18 04/21/19 09:30 Blood Pressure 103/67 04/21/19 09:30 O2 Sat by Pulse Oximetry (%) Laboratory Last Values WBC 7.9 K/mm3 (4.0-10.0) 04/19/19 07:30 RBC 4.87 M/mm3 (4.00-5.60) 04/19/19 07:30 Hgb 13.4 GM/dL (11.7-16.9) 04/19/19 07:30 Hct 40.7 % (35.4-49) 04/19/19 07:30 MCV 83.7 fl (80-96) 04/19/19 07:30 MCH 27.5 pg (25.7-33.7) 04/19/19 07:30 MCHC 32.8 g/dl (32.0-35.9) 04/19/19 07:30 RDW 14.6 % (11.9-15.9) 04/19/19 07:30 Plt Count 193 K/MM3 (134-434) 04/19/19 07:30 MPV 9.7 fl (7.5-11.1) 04/19/19 07:30 Sodium 139 mmol/L (136-145) 04/19/19 07:30 Potassium 4.0 mmol/L (3.5-5.1) 04/19/19 07:30 Chloride 103 mmol/L (98-107) 04/19/19 07:30 Carbon Dioxide 27 mmol/L (21-32) 04/19/19 07:30 Anion Gap 9 MMOL/L (8-16) 04/19/19 07:30 BUN 12.5 mg/dL (7-18) 04/19/19 07:30 Creatinine 1.0 mg/dL (0.55-1.3) 04/19/19 07:30 Est GFR (CKD-EPI)AfAm 94.39 04/19/19 07:30 Est GFR (CKD-EPI)NonAf 81.44 04/19/19 07:30 POC Glucometer 145 UNITS (80-120) 04/21/19 06:18 Random Glucose 94 mg/dL (74-106) 04/19/19 07:30 Calcium 8.9 mg/dL (8.5-10.1) 04/19/19 07:30 Total Bilirubin 0.8 mg/dL (0.2-1) 04/19/19 07:30 AST 15 U/L (15-37) 04/19/19 07:30 ALT 29 U/L (13-61) 04/19/19 07:30 Alkaline Phosphatase 92 U/L (45-117) 04/19/19 07:30 Total Protein 8.1 g/dl (6.4-8.2) 04/19/19 07:30 Albumin 4.0 g/dl (3.4-5.0) 04/19/19 07:30 Urine Color Yellow 04/19/19 12:30 Urine Appearance Clear 04/19/19 12:30 Urine pH 8.0 (5.0-8.0) 04/19/19 12:30 Ur Specific [place] 1.016 (1.010-1.035) 04/19/19 12:30 Urine Protein Negative (NEGATIVE) 04/19/19 12:30 Urine Glucose (UA) Negative (NEGATIVE) 04/19/19 12:30 Urine Ketones Negative (NEGATIVE) 04/19/19 12:30 Urine Blood Negative (NEGATIVE) 04/19/19 12:30 Urine Nitrite Negative (NEGATIVE) 04/19/19 12:30 Urine Bilirubin Negative (NEGATIVE) 04/19/19 12:30 Urine Urobilinogen 1.0 mg/dL (0.2-1.0) 04/19/19 12:30 Ur Leukocyte Esterase Negative (NEGATIVE) 04/19/19 12:30 RPR Titer Nonreactive (NONREACTIVE) 04/19/19 07:30 lab noted Assessment: 04/21/19 10:53 alcohol withdrawal sx alert oriented x 3 04/21/19 10:53 S1S2 Regular Plan: continue librum detox regimen
--- NOTE | 2019-04-21 12:59 | DS ---
[facility] Detox Discharge Summary Admission Date: 04/18/19 Discharge Date: 04/21/19 - History Present History: Alcohol Dependence Additional Comments: after lunch and napping patient report feeling better prefers to go home and prepare for [facility] admission patient is alert oriented x 3 mild tremor less sweat patient is doing well with librium detox regimen tolerate well no complication through out the detox stay - Physical Exam Results Vital Signs: Vital Signs Temperature 97.8 F 04/21/19 09:30 Pulse Rate 85 04/21/19 09:30 Respiratory Rate 18 04/21/19 09:30 Blood Pressure 103/67 04/21/19 09:30 O2 Sat by Pulse Oximetry (%) Pertinent Admission Physical Exam Findings: alcohol withdrawal sx Laboratory Last Values WBC 7.9 K/mm3 (4.0-10.0) 04/19/19 07:30 RBC 4.87 M/mm3 (4.00-5.60) 04/19/19 07:30 Hgb 13.4 GM/dL (11.7-16.9) 04/19/19 07:30 Hct 40.7 % (35.4-49) 04/19/19 07:30 MCV 83.7 fl (80-96) 04/19/19 07:30 MCH 27.5 pg (25.7-33.7) 04/19/19 07:30 MCHC 32.8 g/dl (32.0-35.9) 04/19/19 07:30 RDW 14.6 % (11.9-15.9) 04/19/19 07:30 Plt Count 193 K/MM3 (134-434) 04/19/19 07:30 MPV 9.7 fl (7.5-11.1) 04/19/19 07:30 Sodium 139 mmol/L (136-145) 04/19/19 07:30 Potassium 4.0 mmol/L (3.5-5.1) 04/19/19 07:30 Chloride 103 mmol/L (98-107) 04/19/19 07:30 Carbon Dioxide 27 mmol/L (21-32) 04/19/19 07:30 Anion Gap 9 MMOL/L (8-16) 04/19/19 07:30 BUN 12.5 mg/dL (7-18) 04/19/19 07:30 Creatinine 1.0 mg/dL (0.55-1.3) 04/19/19 07:30 Est GFR (CKD-EPI)AfAm 94.39 04/19/19 07:30 Est GFR (CKD-EPI)NonAf 81.44 04/19/19 07:30 POC Glucometer 145 UNITS (80-120) 04/21/19 06:18 Random Glucose 94 mg/dL (74-106) 04/19/19 07:30 Calcium 8.9 mg/dL (8.5-10.1) 04/19/19 07:30 Total Bilirubin 0.8 mg/dL (0.2-1) 04/19/19 07:30 AST 15 U/L (15-37) 04/19/19 07:30 ALT 29 U/L (13-61) 04/19/19 07:30 Alkaline Phosphatase 92 U/L (45-117) 04/19/19 07:30 Total Protein 8.1 g/dl (6.4-8.2) 04/19/19 07:30 Albumin 4.0 g/dl (3.4-5.0) 04/19/19 07:30 Urine Color Yellow 04/19/19 12:30 Urine Appearance Clear 04/19/19 12:30 Urine pH 8.0 (5.0-8.0) 04/19/19 12:30 Ur Specific [place] 1.016 (1.010-1.035) 04/19/19 12:30 Urine Protein Negative (NEGATIVE) 04/19/19 12:30 Urine Glucose (UA) Negative (NEGATIVE) 04/19/19 12:30 Urine Ketones Negative (NEGATIVE) 04/19/19 12:30 Urine Blood Negative (NEGATIVE) 04/19/19 12:30 Urine Nitrite Negative (NEGATIVE) 04/19/19 12:30 Urine Bilirubin Negative (NEGATIVE) 04/19/19 12:30 Urine Urobilinogen 1.0 mg/dL (0.2-1.0) 04/19/19 12:30 Ur Leukocyte Esterase Negative (NEGATIVE) 04/19/19 12:30 RPR Titer Nonreactive (NONREACTIVE) 04/19/19 07:30 lab noted - Treatment Hospital Course: Detox Protocol Followed, Detoxed Safely, Responded well, Discharged Condition Good, Rehab Referral Accepted Patient has Accepted a Re[facility] Referral to: [facility] - Medication Discharge Medications: Ambulatory Orders Omeprazole [Prilosec (RX)] 20 mg PO DAILY 10/24/13 Metoprolol Tartrate 100 mg PO DAILY 02/03/19 - Diagnosis (1) Leukocytosis Status: Chronic Qualifiers: Leukocytosis type: unspecified Qualified Code(s): D72.829 - Elevated white blood cell count, unspecified (2) Alcohol dependence with uncomplicated withdrawal Status: Acute (3) Nicotine dependence Status: Acute Qualifiers: Nicotine product type: cigarettes Substance use status: in withdrawal Qualified Code(s): F17.213 - Nicotine dependence, cigarettes, with withdrawal (4) Substance induced mood disorder Status: Suspected - AMA Did Patient Leave Against Medical Advice: No CIWA Score - CIWA Score Nausea/Vomitin-No Nausea/No Vomiting Muscle Tremors: 1-None Visible, but Lane Anxiety: 1-Mildly Anxious Agitation: 1-Slight > Activity Paroxysmal Sweats: No Perspiration Orientation: 0-Oriented Tacttile Disturbances: 0-None Auditory Disturbances: 0-None Visual Disturbances: 0-None Headache: 0-None Present CIWA-Ar Total Score: 3
[2019-04-21 13:14] VITALS: BP 137/91; PULSE 84; TEMP 96.5
[2019-04-22] MEDS ORDERED: chlordiazePOXIDE HCL 10 MG CAPSULE PO SCH (05:00)
[2019-04-23] MEDS ORDERED: chlordiazePOXIDE HCL 10 MG CAPSULE PO ONE (05:00)
== END 2019-04-21 13:51 | disposition home or self-care (01) | DRG 897 ==
LOC: YASAS 09:11 → Y3N 12:13
PROVIDERS: ADMIT Surgery; ATTEND Surgery
PROC: HZ2ZZZZ Detoxification Services for Substance Abuse Treatment (ICD-10-PCS; principal; 2019-04-18)
DX: F10.230 Alcohol dependence with withdrawal, uncomplicated (principal); F17.210 Nicotine dependence, cigarettes, uncomplicated; F19.24 Other psychoactive substance dependence with psychoactive substance-induced mood disorder; F32.9 Major depressive disorder, single episode, unspecified; I10 Essential (primary) hypertension; D72.829 Elevated white blood cell count, unspecified; G47.00 Insomnia, unspecified; E78.5 Hyperlipidemia, unspecified; R73.03 Prediabetes
CPT/HCPCS: 36415; 80053; 81003; 82962; 85027; 86593

== ENCOUNTER 2019-05-04 09:15 | Inpatient (IN) | payer OTHER ==
[2019-05-04 10:34] VITALS: BMI 24.9
--- NOTE | 2019-05-04 11:08 | HP ---
"CIWA Score Nausea/Vomitin-No Nausea/No Vomiting Muscle Tremors: 4-Moderate,w/Arms Extend Anxiety: 1-Mildly Anxious Agitation: 0-Normal Activity Paroxysmal Sweats: 1-Minimal Palms Moist Orientation: 0-Oriented Tacttile Disturbances: 0-None Auditory Disturbances: 0-None Visual Disturbances: 2-Mild Sensitivity Headache: 4-Moderately Severe CIWA-Ar Total Score: 12 - Admission Criteria OASAS Guidelines: Admission for Medically Managed Detox: Requires at least one of the followin. CIWA greater than 12 2. Seizures within the past 24 hours 3. Delirium tremens within the past 24 hours 4. Hallucinations within the past 24 hours 5. Acute intervention needed for co occurring medical disorder 6. Acute intervention needed for co occurring psychiatric disorder 7. Severe withdrawal that cannot be handled at a lower level of care (continued vomiting, continued diarrhea, abnormal vital signs) requiring intravenous medication and/or fluids 8. Admission ROS S - HPI Allergies/Adverse Reactions: Allergies Allergy/AdvReac Type Severity Reaction Status Date / Time No Known Allergies Allergy Verified 05/04/19 10:23 History of Present Illness: pt here requesting rehab for etoh use , reports relapse 2 days ago , prior detox at this facility d/c 04/21/19 . Latest use 2 days ago ,2 -3 pints vodka .curently reports feeling depressed about relapsing. Was at [facility], d/c today . reports non- compliance w/ BP meds , has not taken in several days. tobaCCO 1-2 cigs/day PMHx : hypertension, chondrosarcoma right chest wall ,radical resection at [facility] in 2008 Search Terms: loulou whaley, 1960 Search Date: 05/04/2019 11:12:54 AM This report was requested by: Chaya Stone | Reference #: [id number] There are no results for the search terms that you entered. Exam Limitations: No Limitations - Ebola screening Have you traveled outside of the country in the last 21 days: No (N) Have you had contact with anyone from an Ebola affected area: No Do you have a fever: No - Review of Systems Constitutional: See HPI EENT: reports: Other (seasonal allergies : rhinorrhea, teray eyes) Respiratory: reports: No Symptoms reported Cardiac: reports: No Symptoms Reported GI: reports: No Symptoms Reported : reports: No Symptoms Reported Musculoskeletal: reports: No Symptoms Reported Integumentary: reports: No Symptoms Reported Neuro: reports: Headache Endocrine: reports: No Symptoms Reported, Other (borderline DM) Psychiatric: reports: Orientated x3, Anxious Patient History - Patient Medical History Hx Anemia: No Hx Asthma: No Hx Chronic Obstructive Pulmonary Disease (COPD): No Hx Cancer: No Hx Cardiac Disorders: No Hx Congestive Heart Failure: No Hx Hypertension: Yes (on meds) Hx Hypercholesterolemia: No Hx Pacemaker: No HX Cerebrovascular Accident: No Hx Seizures: No Hx Dementia: No Hx Diabetes: No Hx Gastrointestinal Disorders: No Hx Liver Disease: No Hx Genitourinary Disorders: No Hx Sexually Transmitted Disorders: No Hx Renal Disease (ESRD): No Hx Thyroid Disease: No Hx Human Immunodeficiency Virus (HIV): No (negative 09/19) Hx Hepatitis C: No (negative) Hx Depression: Yes Hx Suicide Attempt: No Hx Bipolar Disorder: No Hx Schizophrenia: No - Patient Surgical History Past Surgical History: Yes Hx Neurologic Surgery: No Hx Cataract Extraction: Yes (wearing dark glasses) Hx Cardiac Surgery: No Hx Lung Surgery: No Hx Breast Surgery: No Hx Breast Biopsy: No Hx Abdominal Surgery: No Hx Appendectomy: No Hx Cholecystectomy: No Hx Genitourinary Surgery: No Hx Section: No Hx Orthopedic Surgery: No Other Surgical History: 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 Anesthesia Reaction: No - PPD History Date: 02/05/19 Results: 0 mm - Smoking Cessation Smoking history: Current every day smoker Have you smoked in the past 12 months: Yes Aproximately how many cigarettes per day: 3 Cigars Per Day: 0 Hx Chewing Tobacco Use: No Initiated information on smoking cessation: No - Substances abused Alcohol Substance route: Oral Frequency: 3-6 times per week Amount used: 2-3 pints vodka and fern Age of first use: 29 Date of last use: 05/02/19 Admission Physical Exam BHS - Vital Signs Vital Signs: Vital Signs - 24 hr 05/04/19 05/04/19 10:29 10:46 Temperature 97 F L 97 F L Pulse Rate 94 H 94 H Respiratory 16 16 Rate Blood Pressure 179/114 H 179/114 H - Physical General Appearance: Yes: Mild Distress, Tremorous, Anxious HEENTM: Yes: EOMI, Hearing grossly Normal, Normocephalic, Normal Voice Respiratory: Yes: Chest Non-Tender, Lungs Clear, Normal Breath Sounds, No Respiratory Distress, No Accessory Muscle Use Neck: Yes: No masses,lesions,Nodules, Trachea in good position Cardiology: Yes: Regular Rhythm, Regular Rate, S1, S2 Abdominal: Yes: Non Tender, Soft Back: Yes: Normal Inspection Musculoskeletal: Yes: Gait Steady Extremities: Yes: Non-Tender, Tremors Neurological: Yes: Fully Oriented, Alert, Motor Strength 5/5, Depressed Affect Integumentary: Yes: Warm - Diagnostic (1) Alcohol dependence with uncomplicated withdrawal Current Visit: Yes Status: Acute Breathalyzer - Breathalyzer Breathalyzer: 0.059 Urine Drug Screen - Test Device Lot number: [id number] Expiration date: 01/29/21 - Control Is test valid?: Yes - Results Drug screen NEGATIVE: No Urine drug screen results: BZO-Benzodiazepines Inpatient Rehab Admission - Rehab Decision to Admit Inpatient rehab admission?: No"
[2019-05-04] MEDS ORDERED: MAGNESIUM CITRATE 300 ML BOTTLE PO PRN (11:14)
[2019-05-04] MEDS ORDERED: BISMUTH SUBSALICYLATE 262 MG/15 ML BTL PO PRN (11:14)
[2019-05-04] MEDS ORDERED: MAGNESIUM HYDROX 2400MG/30ML ORAL SUSPENSION 30 ML CUP PO PRN (11:14)
[2019-05-04] MEDS ORDERED: MELATONIN 5 MG TABLETS PO PRN (11:14)
[2019-05-04] MEDS ORDERED: MENTHOL/PHENOL 1 EACH UD MM PRN (11:14)
[2019-05-04] MEDS ORDERED: MAG HYDROX/AL HYDROX/SIMETH 30 ML UNIT-DOSE CUP PO PRN (11:14)
[2019-05-04] MEDS ORDERED: ACETAMINOPHEN 325 MG TABLET (FP) PO PRN ×2 (11:14)
[2019-05-04] MEDS ORDERED: hydrOXYzine PAMOATE 25 MG CAPSULE (FP) PO PRN (11:14)
[2019-05-04] MEDS ORDERED: diazePAM 5 MG TABLET PO PRN (11:17)
[2019-05-04] MEDS: METOPROLOL TARTRATE 50 MG TABLET (FP) PO SCH (12:26)
[2019-05-04] MEDS: diazePAM 5 MG TABLET PO SCH ×2 (13:46→22:04)
[2019-05-04] MEDS ORDERED: guaiFENesin 200 MG/10 ML 10 ML UNIT-DOSE CUPS PO PRN (17:22)
[2019-05-04] MEDS: PSEUDOEPHEDRINE HCL 30 MG TABLET PO PRN (17:50)
[2019-05-04] MEDS: THIAMINE HCL 100 MG TABLET (FP) PO SCH (22:04)
[2019-05-05] MEDS: diazePAM 5 MG TABLET PO SCH ×3 (05:37→17:10)
[2019-05-05] MEDS: PRENATAL VITAMINS W/ FOLIC ACID TABLET (FP) PO SCH (09:47)
[2019-05-05] MEDS: METOPROLOL TARTRATE 50 MG TABLET (FP) PO SCH (09:48)
[2019-05-05] MEDS: PSEUDOEPHEDRINE HCL 30 MG TABLET PO PRN ×2 (09:49→16:29)
[2019-05-05] MEDS ORDERED: PANTOPRAZOLE 40 MG TABLET (FP) PO ONE (10:32)
--- NOTE | 2019-05-05 10:36 | PN ---
S CIWA - CIWA Score Nausea/Vomitin Muscle Tremors: 2 Anxiety: 2 Agitation: 2 Paroxysmal Sweats: No Perspiration Orientation: 0-Oriented Tacttile Disturbances: 0-None Auditory Disturbances: 0-None Visual Disturbances: 0-None Headache: 2-Mild CIWA-Ar Total Score: 10 BHS Progress Note (SOAP) Subjective: alert,irritable,anxious,interrupted sleep,tremor Objective: 05/05/19 10:35 Vital Signs Temperature 97.0 F L 05/05/19 09:09 Pulse Rate 98 H 05/05/19 09:09 Respiratory Rate 18 05/05/19 09:09 Blood Pressure 140/84 05/05/19 09:09 O2 Sat by Pulse Oximetry (%) labs pending Assessment: 05/05/19 10:36 withdrawal symptom Plan: continue detox,valium regimen
--- NOTE | 2019-05-05 11:11 | CONSULT ---
[facility] Psychiatric Consult - Data Date of interview: 05/05/19 (Self-referred) Admission source: [facility] Identifying data: Mr Garcia is a 59 years old [place]-born male, father of 3 children, unemployed receiving SSD, homeless seeking detox treatment for alcohol Substance Abuse History: Reports history of alcohol use. Refer to addiction counmselor's summary for further information Medical History: Significant for dyslipidemia, hypertension and history of radical resection of endochondrosarcoma of ribs, sternum and clavicle in 2008 and cataract surgery. Smokes 3 cigarettes daily Psychiatric History: Patient reports that his first psychiatric contact was in 2011 when he was admitted to [facility] for depression following the completed suicidal attempt of his son via hanging. He was diagnosed with MDD, kept for 3 months and treated with Seroquel and Klonopin. Reports 3-4 subsequent hospitalizations at various facilities including [facility], [facility] and most recently 3 weeks ago at [facility]. He was discharged on Seroquel 200 mg/hs, Trazadone 150 mg/hs and Zoloft 50 mg/day. Reports that he receives outpatient psychiatric treatment at [facility] with [facility]. Denies previous suicidal attempt. At present, reports feeling mildly depressed and sleeping poorly. Physical/Sexual Abuse/Trauma History: Patient denies history of abuse including domestic violence. Stressors : estrangement from relatives, homelessness, financial difficulties, alcohol addiction, loneliness and medical issues. Additional Comment: No criminal history Mental Status Exam - Mental Status Exam Alert and Oriented to: Time, Place, Person Cognitive Function: Fair Patient Appearance: Disheveled Mood: Depressed (mildly) Affect: Appropriate Patient Behavior: Cooperative Speech Pattern: Clear Voice Loudness: Normal Thought Process: Intact, Goal Oriented Thought Disorder: Not Present Suicidal Ideation: Denies Homicidal Ideation: Denies Insight/Judgement: Poor Sleep: Poorly Appetite: Poor Muscle strength/Tone: Normal Gait/Station: Normal Psychiatric Findings - Problem List ([place] 1, 2,3) (1) MDD (major depressive disorder), recurrent, severe, with psychosis Current Visit: Yes Status: Chronic (2) Alcohol-induced mood disorder Current Visit: Yes Status: Acute (3) Alcohol-induced sleep disorder Current Visit: Yes Status: Acute (4) Alcohol dependence with uncomplicated withdrawal Current Visit: Yes Status: Acute (5) Nicotine dependence Current Visit: No Status: Chronic Qualifiers: Nicotine product type: cigarettes Substance use status: in withdrawal Qualified Code(s): F17.213 - Nicotine dependence, cigarettes, with withdrawal (6) Borderline diabetes mellitus Current Visit: No Status: Chronic (7) Hypertension Current Visit: No Status: Chronic Qualifiers: Hypertension type: essential hypertension Qualified Code(s): I10 - Essential (primary) hypertension (8) Chondrosarcoma of ribs, sternum, 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 2) Continue inpatient detoxification
[2019-05-05] MEDS: SERTRALINE HCL 50 MG TABLET (FP) PO SCH (11:51)
[2019-05-05] MEDS: traZODone HCL 50 MG TABLET (FP) PO SCH (21:57)
[2019-05-05] MEDS: THIAMINE HCL 100 MG TABLET (FP) PO SCH (21:57)
[2019-05-05] MEDS: QUEtiapine FUMARATE 200 MG TABLET PO SCH (21:57)
[2019-05-06] MEDS ORDERED: diazePAM 5 MG TABLET PO ONE (06:00)
--- NOTE | 2019-05-06 09:19 | PN ---
S CIWA - CIWA Score Nausea/Vomitin Muscle Tremors: 2 Anxiety: 3 Agitation: 2 Paroxysmal Sweats: No Perspiration Orientation: 0-Oriented Tacttile Disturbances: 1-Very Mild Itch/Numbness Auditory Disturbances: 0-None Visual Disturbances: 0-None Headache: 1-Very Mild CIWA-Ar Total Score: 11 BHS Progress Note (SOAP) Subjective: alert,irritable,anxious,interrupted sleep,tremor Objective: 05/06/19 09:16 Vital Signs Temperature 97 F L 05/06/19 07:15 Pulse Rate 99 H 05/06/19 07:15 Respiratory Rate 18 05/06/19 07:15 Blood Pressure 108/67 05/06/19 07:15 O2 Sat by Pulse Oximetry (%) Assessment: 05/06/19 09:17 withdrawal symptom Plan: withdrawal symptom,regimen changed to librium instead of valium,bgm monitoring
[2019-05-06] MEDS ORDERED: chlordiazePOXIDE HCL 10 MG CAPSULE PO PRN (09:21)
[2019-05-06] MEDS: SERTRALINE HCL 50 MG TABLET (FP) PO SCH (10:10)
[2019-05-06] MEDS: METOPROLOL TARTRATE 50 MG TABLET (FP) PO SCH (10:10)
[2019-05-06] MEDS: PANTOPRAZOLE 40 MG TABLET (FP) PO SCH (10:10)
[2019-05-06] MEDS: PRENATAL VITAMINS W/ FOLIC ACID TABLET (FP) PO SCH (10:10)
[2019-05-06] MEDS: PSEUDOEPHEDRINE HCL 30 MG TABLET PO PRN (10:11)
[2019-05-06] MEDS: chlordiazePOXIDE HCL 25 MG CAPSULE PO SCH ×2 (14:27→22:10)
[2019-05-06] MEDS: QUEtiapine FUMARATE 200 MG TABLET PO SCH (22:10)
[2019-05-06] MEDS: traZODone HCL 50 MG TABLET (FP) PO SCH (22:10)
[2019-05-06] MEDS: THIAMINE HCL 100 MG TABLET (FP) PO SCH (22:10)
[2019-05-07] MEDS: chlordiazePOXIDE HCL 25 MG CAPSULE PO SCH ×2 (06:07→13:48)
[2019-05-07] MEDS ORDERED: chlordiazePOXIDE HCL 10 MG CAPSULE PO PRN (10:12)
--- NOTE | 2019-05-07 10:22 | PN ---
S CIWA - CIWA Score Nausea/Vomitin-Mild Nausea/No Vomiting Muscle Tremors: 1-None Visible, but [place] Anxiety: 2 Agitation: 2 Paroxysmal Sweats: No Perspiration Orientation: 0-Oriented Tacttile Disturbances: 0-None Auditory Disturbances: 0-None Visual Disturbances: 0-None Headache: 1-Very Mild CIWA-Ar Total Score: 7 S Progress Note (SOAP) Subjective: alert,irritable,anxious,interrupted sleep Objective: 05/07/19 10:21 Vital Signs Temperature 97.7 F 05/07/19 09:19 Pulse Rate 91 H 05/07/19 09:19 Respiratory Rate 18 05/07/19 09:19 Blood Pressure 103/68 05/07/19 09:19 O2 Sat by Pulse Oximetry (%) Assessment: 05/07/19 10:21 withdrawal symptom but less Plan: continue detox librium regimen,medication adjusted,discharge in am
[2019-05-07] MEDS: SERTRALINE HCL 50 MG TABLET (FP) PO SCH (10:29)
[2019-05-07] MEDS: PANTOPRAZOLE 40 MG TABLET (FP) PO SCH (10:29)
[2019-05-07] MEDS: PRENATAL VITAMINS W/ FOLIC ACID TABLET (FP) PO SCH (10:29)
[2019-05-07] MEDS: METOPROLOL TARTRATE 50 MG TABLET (FP) PO SCH (10:29)
[2019-05-07] MEDS ORDERED: chlordiazePOXIDE HCL 10 MG CAPSULE PO SCH (22:00)
[2019-05-07] MEDS: traZODone HCL 50 MG TABLET (FP) PO SCH (22:12)
[2019-05-07] MEDS: QUEtiapine FUMARATE 200 MG TABLET PO SCH (22:17)
[2019-05-07] MEDS: THIAMINE HCL 100 MG TABLET (FP) PO SCH (22:17)
[2019-05-08] MEDS ORDERED: chlordiazePOXIDE 5 MG CAPSULE PO SCH (05:00)
[2019-05-08] MEDS ORDERED: chlordiazePOXIDE HCL 10 MG CAPSULE PO ONE (06:00)
[2019-05-08 06:27] VITALS: BP 125/85; PULSE 111; TEMP 97.7
--- NOTE | 2019-05-08 13:58 | DS ---
[facility] Detox Discharge Summary Admission Date: 05/04/19 Discharge Date: 05/08/19 - History Present History: Alcohol Dependence Additional Comments: Pt is medically cleared and discharge today. Pt completed his detox protocol. Pt is encouraged to follow-up with an outpatient CD program and also to follow- up with his pmd. Pt verbalized understanding. Pt is alert and oriented x3 and in no acute respiratory distress. Pertinent Past History: H/o HTN and alcohol use disorder. - Physical Exam Results Vital Signs: Vital Signs Temperature 97.7 F 05/08/19 06:00 Pulse Rate 111 H 05/08/19 06:00 Respiratory Rate 18 05/08/19 06:00 Blood Pressure 125/85 05/08/19 06:00 O2 Sat by Pulse Oximetry (%) Vital Signs 05/08/19 06:00 Temperature 97.7 F Pulse Rate 111 H Respiratory 18 Rate Blood Pressure 125/85 Pertinent Admission Physical Exam Findings: withdrawal symptoms. 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, sternum, or clavicle Status: Chronic (5) Hypertension Status: Chronic Qualifiers: Hypertension type: essential hypertension Qualified Code(s): I10 - Essential (primary) hypertension (6) Nicotine dependence Status: Chronic Qualifiers: Nicotine product type: cigarettes Substance use status: in withdrawal Qualified Code(s): F17.213 - Nicotine dependence, cigarettes, with withdrawal - AMA Did Patient Leave Against Medical Advice: No [facility] CIWA - CIWA Score Nausea/Vomitin-No Nausea/No Vomiting Muscle Tremors: None Anxiety: 1-Mildly Anxious Agitation: 1-Slight > Activity Paroxysmal Sweats: No Perspiration Orientation: 0-Oriented Tacttile Disturbances: 0-None Auditory Disturbances: 0-None Visual Disturbances: 0-None Headache: 0-None Present CIWA-Ar Total Score: 2
[2019-05-09] MEDS ORDERED: chlordiazePOXIDE HCL 10 MG CAPSULE PO PRN
[2019-05-09] MEDS ORDERED: chlordiazePOXIDE HCL 10 MG CAPSULE PO SCH (05:00)
[2019-05-10] MEDS ORDERED: chlordiazePOXIDE HCL 10 MG CAPSULE PO PRN
[2019-05-10] MEDS ORDERED: chlordiazePOXIDE HCL 10 MG CAPSULE PO ONE (05:00)
== END 2019-05-08 09:15 | disposition home or self-care (01) | DRG 897 ==
LOC: YASAS 09:15 → Y6N 11:57
PROVIDERS: ADMIT Surgery; ATTEND Surgery
PROC: HZ2ZZZZ Detoxification Services for Substance Abuse Treatment (ICD-10-PCS; principal; 2019-05-04)
DX: F10.230 Alcohol dependence with withdrawal, uncomplicated (principal); F33.3 Major depressive disorder, recurrent, severe with psychotic symptoms; F10.24 Alcohol dependence with alcohol-induced mood disorder; F10.282 Alcohol dependence with alcohol-induced sleep disorder; F17.213 Nicotine dependence, cigarettes, with withdrawal; I10 Essential (primary) hypertension; R73.03 Prediabetes
CPT/HCPCS: 82962

== ENCOUNTER 2019-10-01 10:15 | Inpatient (IN) | payer OTHER ==
[2019-10-01 10:42] VITALS: BMI 28.1
--- NOTE | 2019-10-01 11:05 | HP ---
CIWA Score Nausea/Vomitin-No Nausea/No Vomiting Muscle Tremors: 2 Anxiety: 1-Mildly Anxious Agitation: 1-Slight > Activity Paroxysmal Sweats: 3 Orientation: 0-Oriented Tacttile Disturbances: 0-None Auditory Disturbances: 0-None Visual Disturbances: 2-Mild Sensitivity Headache: 1-Very Mild CIWA-Ar Total Score: 10 - Admission Criteria OASAS Guidelines: Admission for Medically Managed Detox: Requires at least one of the followin. CIWA greater than 12 2. Seizures within the past 24 hours 3. Delirium tremens within the past 24 hours 4. Hallucinations within the past 24 hours 5. Acute intervention needed for co occurring medical disorder 6. Acute intervention needed for co occurring psychiatric disorder 7. Severe withdrawal that cannot be handled at a lower level of care (continued vomiting, continued diarrhea, abnormal vital signs) requiring intravenous medication and/or fluids 8. Admitting History and Physical - Smoking History Smoking history: Current every day smoker Have you smoked in the past 12 months: Yes Aproximately how many cigarettes per day: 3 - Alcohol/Substance Use Hx Alcohol Use: Yes Admission ROS [facility] - HPI Allergies/Adverse Reactions: Allergies Allergy/AdvReac Type Severity Reaction Status Date / Time No Known Allergies Allergy Verified 10/01/19 10:34 History of Present Illness: 59 y.o. male here requesting detox for etoh use , reports drinking alcohol 2- 3 days / week , latest use yesterday , reports tremors if not drinking , went to [facility] 2 days ago 2/2 tremors , reports non- compliance w / BP meds , has not taken since yesterday . 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 meds confirmed w/ pharmacy Exam Limitations: Clinical Condition, Intoxication - Review of Systems Constitutional: See HPI EENT: reports: No Symptoms Reported, Other (glasses) Respiratory: reports: No Symptoms reported Cardiac: reports: No Symptoms Reported GI: reports: No Symptoms Reported : reports: No Symptoms Reported Musculoskeletal: reports: No Symptoms Reported Integumentary: reports: No Symptoms Reported Neuro: reports: See HPI Endocrine: reports: See HPI Psychiatric: reports: Mood/Affect Appropiate, Orientated x3 Patient History - Patient Medical History Hx Anemia: No Hx Asthma: No Hx Chronic Obstructive Pulmonary Disease (COPD): No Hx Cancer: No Hx Cardiac Disorders: No Hx Congestive Heart Failure: No Hx Hypertension: Yes (on meds) Hx Hypercholesterolemia: No Hx Pacemaker: No HX Cerebrovascular Accident: No Hx Seizures: No Hx Dementia: No Hx Diabetes: No Hx Gastrointestinal Disorders: No Hx Liver Disease: No Hx Genitourinary Disorders: No Hx Sexually Transmitted Disorders: No Hx Renal Disease (ESRD): No Hx Thyroid Disease: No Hx Human Immunodeficiency Virus (HIV): No (negative 09/19) Hx Hepatitis C: No (negative) Hx Depression: Yes Hx Suicide Attempt: No Hx Bipolar Disorder: No Hx Schizophrenia: No - Patient Surgical History Past Surgical History: Yes Hx Neurologic Surgery: No Hx Cataract Extraction: Yes (wearing dark glasses) Hx Cardiac Surgery: No Hx Lung Surgery: No Hx Breast Surgery: No Hx Breast Biopsy: No Hx Abdominal Surgery: No Hx Appendectomy: No Hx Cholecystectomy: No Hx Genitourinary Surgery: No Hx Section: No Hx Orthopedic Surgery: No Other Surgical History: 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 Anesthesia Reaction: No - PPD History Date: 02/05/19 Results: 0 mm - Smoking Cessation Smoking history: Current every day smoker Have you smoked in the past 12 months: Yes Aproximately how many cigarettes per day: 3 Cigars Per Day: 0 Hx Chewing Tobacco Use: No Initiated information on smoking cessation: No - Substances abused Alcohol Substance route: Oral Frequency: 3-6 times per week Amount used: [place] - 2 pts Age of first use: 34 Date of last use: 09/30/19 Admission Physical Exam [facility] - Vital Signs Vital Signs: Vital Signs - 24 hr 10/01/19 10:32 Temperature 97 F L Pulse Rate 101 H Respiratory 18 Rate Blood Pressure 140/82 - Physical General Appearance: Yes: Mild Distress, Intoxicated HEENTM: Yes: EOMI, Hearing grossly Normal, Normocephalic, Normal Voice Respiratory: Yes: Chest Non-Tender, Lungs Clear, Normal Breath Sounds, No Respiratory Distress, No Accessory Muscle Use Neck: Yes: No masses,lesions,Nodules, Trachea in good position Cardiology: Yes: Regular Rhythm, Regular Rate, S1, S2, Tachycardia Abdominal: Yes: Normal Bowel Sounds, Non Tender, Soft Back: Yes: Normal Inspection Musculoskeletal: Yes: full range of Motion, Gait Steady Extremities: Yes: Normal Capillary Refill, Normal Inspection, Normal Range of Motion, Non-Tender, Tremors Neurological: Yes: Fully Oriented, Alert, Motor Strength 5/5, Normal Mood/Affect Integumentary: Yes: Normal Color, Warm - Diagnostic (1) Alcohol dependence with uncomplicated withdrawal Current Visit: Yes Status: Chronic Breathalyzer - Breathalyzer Breathalyzer: 0.088 Urine Drug Screen - Test Device Lot number: [id number] Expiration date: 07/26/21 - Control Is test valid?: Yes - Results Drug screen NEGATIVE: No Urine drug screen results: BZO-Benzodiazepines Inpatient Rehab Admission - Rehab Decision to Admit Inpatient rehab admission?: No
[2019-10-01] MEDS ORDERED: MELATONIN 5 MG TABLETS PO PRN (11:14)
[2019-10-01] MEDS ORDERED: hydrOXYzine PAMOATE 25 MG CAPSULE (FP) PO PRN (11:14)
[2019-10-01] MEDS ORDERED: METHOCARBAMOL 500 MG TABLET PO PRN (11:14)
[2019-10-01] MEDS ORDERED: MENTHOL/PHENOL 1 EACH UD MM PRN (11:14)
[2019-10-01] MEDS ORDERED: MAGNESIUM CITRATE 300 ML BOTTLE PO PRN (11:14)
[2019-10-01] MEDS ORDERED: IBUPROFEN 400 MG TABLET (FP) PO PRN (11:14)
[2019-10-01] MEDS ORDERED: ACETAMINOPHEN 325 MG TABLET (FP) PO PRN ×2 (11:14)
[2019-10-01] MEDS ORDERED: BISMUTH SUBSALICYLATE 262 MG/15 ML BTL PO PRN (11:14)
[2019-10-01] MEDS ORDERED: MAGNESIUM HYDROX 2400MG/30ML ORAL SUSPENSION 30 ML CUP PO PRN (11:14)
[2019-10-01] MEDS ORDERED: MAG HYDROX/AL HYDROX/SIMETH 30 ML UNIT-DOSE CUP PO PRN (11:14)
[2019-10-01] MEDS ORDERED: diazePAM 5 MG TABLET PO PRN (11:17)
[2019-10-01] MEDS: metFORMIN HCL 500 MG TABLET (FP) PO SCH ×2 (12:20→17:34)
[2019-10-01] MEDS: LISINOPRIL 5 MG TABLET (FP) PO SCH (12:21)
--- NOTE | 2019-10-01 14:08 | CONSULT ---
[facility] Psychiatric Consult - Data Date of interview: 10/01/19 Admission source: [facility] Identifying data: Patient is approached at bedside for the requested psychiatric evaluation. Mr Jose refused. " You can talk to me here. I am not going anywhere else. I don't care about my roommate." Patient is reminded of confidentiality rules. He remains refractory to MD's remarks and defiant. " Talk to me here or leave. " Nursing staff is made aware.
[2019-10-01] MEDS: diazePAM 5 MG TABLET PO SCH ×2 (15:07→22:26)
[2019-10-01 16:52] LABS: HEMATOCRIT 40.6 % (35.4-49); HEMOGLOBIN 13.2 GM/dL (11.7-16.9); MCH 27.2 pg (25.7-33.7); MCHC 32.4 g/dl (32.0-35.9); MEAN CELL VOLUME 84.1 fl (80-96); MEAN PLT VOLUME 9.7 fl (7.5-11.1); PLATELET COUNT 263 K/MM3 (134-434); RBC 4.83 M/mm3 (4.00-5.60); RDW 14.8 % (11.9-15.9); WHITE BLOOD COUNT 10.7 K/mm3 (4.0-10.0)
[2019-10-01 17:02] LABS: ALBUMIN 4.2 g/dl (3.4-5.0); BILIRUBIN,TOTAL 0.4 mg/dL (0.2-1); CALCIUM 8.8 mg/dL (8.5-10.1); TOT PROT 8.8 g/dl (6.4-8.2)
[2019-10-01] MEDS: THIAMINE HCL 100 MG TABLET (FP) PO SCH (22:26)
[2019-10-02] MEDS: diazePAM 5 MG TABLET PO SCH ×3 (07:01→21:52)
[2019-10-02] MEDS: metFORMIN HCL 500 MG TABLET (FP) PO SCH ×2 (08:11→17:09)
[2019-10-02] MEDS: PRENATAL VITAMINS W/ FOLIC ACID TABLET (FP) PO SCH (11:19)
[2019-10-02] MEDS: LISINOPRIL 5 MG TABLET (FP) PO SCH (11:19)
--- NOTE | 2019-10-02 12:09 | PN ---
[facility] CIWA - CIWA Score Nausea/Vomitin-No Nausea/No Vomiting Muscle Tremors: None Anxiety: 2 Agitation: 0-Normal Activity Paroxysmal Sweats: 2 Orientation: 0-Oriented Tacttile Disturbances: 0-None Auditory Disturbances: 0-None Visual Disturbances: 0-None Headache: 0-None Present CIWA-Ar Total Score: 4 [facility] Progress Note (SOAP) Subjective: c/o mild withdrawal symptoms. Objective: 10/02/19 12:04 Vital Signs 10/02/19 10/02/19 06:45 09:06 Temperature 96.3 F L 96.9 F L Pulse Rate 76 105 H Respiratory 18 18 Rate Blood Pressure 132/89 126/85 Laboratory Last Values WBC 10.7 K/mm3 (4.0-10.0) H 10/01/19 11:30 RBC 4.83 M/mm3 (4.00-5.60) 10/01/19 11:30 Hgb 13.2 GM/dL (11.7-16.9) 10/01/19 11:30 Hct 40.6 % (35.4-49) 10/01/19 11:30 MCV 84.1 fl (80-96) 10/01/19 11:30 MCH 27.2 pg (25.7-33.7) 10/01/19 11:30 MCHC 32.4 g/dl (32.0-35.9) 10/01/19 11:30 RDW 14.8 % (11.9-15.9) 10/01/19 11:30 Plt Count 263 K/MM3 (134-434) D 10/01/19 11:30 MPV 9.7 fl (7.5-11.1) 10/01/19 11:30 Sodium 140 mmol/L (136-145) 10/01/19 11:30 Potassium 4.0 mmol/L (3.5-5.1) 10/01/19 11:30 Chloride 106 mmol/L (98-107) 10/01/19 11:30 Carbon Dioxide 26 mmol/L (21-32) 10/01/19 11:30 Anion Gap 8 MMOL/L (8-16) 10/01/19 11:30 BUN 17.0 mg/dL (7-18) 10/01/19 11:30 Creatinine 1.0 mg/dL (0.55-1.3) 10/01/19 11:30 Est GFR (CKD-EPI)AfAm 94.39 10/01/19 11:30 Est GFR (CKD-EPI)NonAf 81.44 10/01/19 11:30 POC Glucometer 126 UNITS (80-120) 10/02/19 06:59 Random Glucose 106 mg/dL (74-106) 10/01/19 11:30 Calcium 8.8 mg/dL (8.5-10.1) 10/01/19 11:30 Total Bilirubin 0.4 mg/dL (0.2-1) 10/01/19 11:30 AST 25 U/L (15-37) 10/01/19 11:30 ALT 47 U/L (13-61) 10/01/19 11:30 Alkaline Phosphatase 95 U/L (45-117) 10/01/19 11:30 Total Protein 8.8 g/dl (6.4-8.2) H 10/01/19 11:30 Albumin 4.2 g/dl (3.4-5.0) 10/01/19 11:30 RPR Titer Nonreactive (NONREACTIVE) 10/01/19 11:30 Labs noted. Assessment: 10/02/19 12:04 AOX3, in no acute respiratory distress. Full ROM, ambulating in the unit. Mild Withdrawal symptoms. For d/c tomorrow. Plan: continue detox. Encourage pt to follow-up with his pmd. D/C in AM.
[2019-10-02] MEDS ORDERED: LISINOPRIL 5 MG TABLET (FP) PO ONE (13:11)
[2019-10-02] MEDS: THIAMINE HCL 100 MG TABLET (FP) PO SCH (21:52)
[2019-10-03] MEDS ORDERED: diazePAM 5 MG TABLET PO ONE (06:00)
[2019-10-03 06:27] VITALS: BP 131/79; PULSE 82; TEMP 98
[2019-10-03] MEDS: metFORMIN HCL 500 MG TABLET (FP) PO SCH (06:39)
[2019-10-03] MEDS: LISINOPRIL 5 MG TABLET (FP) PO SCH (10:15)
[2019-10-03] MEDS: PRENATAL VITAMINS W/ FOLIC ACID TABLET (FP) PO SCH (10:15)
--- NOTE | 2019-10-03 14:49 | DS ---
[facility] Detox Discharge Summary Admission Date: 10/01/19 Discharge Date: 10/03/19 - History Present History: Alcohol Dependence Additional Comments: 59 years old male admitted on 10/01/19 for alcohol withdrawal sx management treated with valium detox regiment patient has completed valium regiment and tolerated well alert oriented x 3 seen by psychiatrist that the patient does not want to leave his bed for mental health evaluation encourage mental doe refusal form to be signed cardiac s1s2 regular rate rhym respiratory clear lungs bilaterally on auscultation extremities full range of motion - Physical Exam Results Vital Signs: Vital Signs Temperature 98 F 10/03/19 06:26 Pulse Rate 82 10/03/19 06:26 Respiratory Rate 16 10/03/19 06:26 Blood Pressure 131/79 10/03/19 06:26 O2 Sat by Pulse Oximetry (%) Pertinent Admission Physical Exam Findings: alcohol withdrawal Laboratory Last Values WBC 10.7 K/mm3 (4.0-10.0) H 10/01/19 11:30 RBC 4.83 M/mm3 (4.00-5.60) 10/01/19 11:30 Hgb 13.2 GM/dL (11.7-16.9) 10/01/19 11:30 Hct 40.6 % (35.4-49) 10/01/19 11:30 MCV 84.1 fl (80-96) 10/01/19 11:30 MCH 27.2 pg (25.7-33.7) 10/01/19 11:30 MCHC 32.4 g/dl (32.0-35.9) 10/01/19 11:30 RDW 14.8 % (11.9-15.9) 10/01/19 11:30 Plt Count 263 K/MM3 (134-434) D 10/01/19 11:30 MPV 9.7 fl (7.5-11.1) 10/01/19 11:30 Sodium 140 mmol/L (136-145) 10/01/19 11:30 Potassium 4.0 mmol/L (3.5-5.1) 10/01/19 11:30 Chloride 106 mmol/L (98-107) 10/01/19 11:30 Carbon Dioxide 26 mmol/L (21-32) 10/01/19 11:30 Anion Gap 8 MMOL/L (8-16) 10/01/19 11:30 BUN 17.0 mg/dL (7-18) 10/01/19 11:30 Creatinine 1.0 mg/dL (0.55-1.3) 10/01/19 11:30 Est GFR (CKD-EPI)AfAm 94.39 10/01/19 11:30 Est GFR (CKD-EPI)NonAf 81.44 10/01/19 11:30 POC Glucometer 100 UNITS (80-120) 10/03/19 06:45 Random Glucose 106 mg/dL (74-106) 10/01/19 11:30 Calcium 8.8 mg/dL (8.5-10.1) 10/01/19 11:30 Total Bilirubin 0.4 mg/dL (0.2-1) 10/01/19 11:30 AST 25 U/L (15-37) 10/01/19 11:30 ALT 47 U/L (13-61) 10/01/19 11:30 Alkaline Phosphatase 95 U/L (45-117) 10/01/19 11:30 Total Protein 8.8 g/dl (6.4-8.2) H 10/01/19 11:30 Albumin 4.2 g/dl (3.4-5.0) 10/01/19 11:30 RPR Titer Nonreactive (NONREACTIVE) 10/01/19 11:30 lab noted - Treatment Hospital Course: Detox Protocol Followed, Detoxed Safely, Responded well, Discharged Condition Good, Rehab Referral Accepted Patient has Accepted [facility] Referral [facility] - Medication Discharge Medications: Ambulatory Orders Quetiapine Fumarate [Seroquel -] 400 mg PO HS 05/04/19 Trazodone HCl 200 mg PO HS 05/04/19 Simvastatin [Zocor] 20 mg PO HS 10/01/19 Lisinopril [Zestril] 2.5 mg PO DAILY 14 Days #14 tablet 10/02/19 Metformin HCl [Glucophage] 500 mg PO BID 14 Days #28 tablet 10/02/19 Metoprolol Tartrate 50 mg PO DAILY 14 Days #14 tablet 10/02/19 - Diagnosis (1) Alcohol dependence with uncomplicated withdrawal Status: Acute (2) Hypertension Status: Chronic Qualifiers: Hypertension type: essential hypertension Qualified Code(s): I10 - Essential (primary) hypertension (3) Nicotine dependence Status: Acute Qualifiers: Nicotine product type: cigarettes Substance use status: in withdrawal Qualified Code(s): F17.213 - Nicotine dependence, cigarettes, with withdrawal (4) Substance induced mood disorder Status: Suspected - AMA Did Patient Leave Against Medical Advice: No CIWA Score - CIWA Score Nausea/Vomitin-No Nausea/No Vomiting Muscle Tremors: None Anxiety: 1-Mildly Anxious Agitation: 0-Normal Activity Paroxysmal Sweats: 1-Minimal Palms Moist Orientation: 0-Oriented Tacttile Disturbances: 0-None Auditory Disturbances: 0-None Visual Disturbances: 0-None Headache: 0-None Present CIWA-Ar Total Score: 2
== END 2019-10-03 11:52 | disposition home or self-care (01) | DRG 897 ==
LOC: YASAS 10:15 → Y3N 11:44
PROVIDERS: ADMIT Allergy & Immunology; ATTEND Allergy & Immunology
PROC: HZ2ZZZZ Detoxification Services for Substance Abuse Treatment (ICD-10-PCS; principal; 2019-10-01)
DX: F10.230 Alcohol dependence with withdrawal, uncomplicated (principal); F17.213 Nicotine dependence, cigarettes, with withdrawal; F19.24 Other psychoactive substance dependence with psychoactive substance-induced mood disorder; F32.9 Major depressive disorder, single episode, unspecified; I10 Essential (primary) hypertension; E11.9 Type 2 diabetes mellitus without complications; Z79.84 Long term (current) use of oral hypoglycemic drugs; E78.5 Hyperlipidemia, unspecified; Z85.830 Personal history of malignant neoplasm of bone
CPT/HCPCS: 36415; 80053; 82962; 85027; 86593

== ENCOUNTER 2025-02-08 10:52 | Inpatient (IN) | payer OTHER ==
[2025-02-08] MEDS ORDERED: ACETAMINOPHEN INJECTION 100 ML ONE (11:38)
[2025-02-08 12:45] LABS: ABSOLUTE IMMATURE GRANULOCYTES 0.01 x10^3/uL (0.0-0.031); BASOPHILS # 0.03 x10^3/uL (0.01-0.08); EOSINOPHIL % 3.2 % (0.8-7.0); EOSINOPHILS # 0.21 x10^3/uL (0.04-0.54); HEMATOCRIT 38.4 % (40.1-51.0); HEMOGLOBIN 12.3 g/dL (13.7-17.5); MEAN CELL VOLUME 86.1 fl (79.0-92.2); MONOCYTE # 0.63 x10^3/uL (0.30-0.82); MONOCYTE % 9.5 % (5.3-12.2); PLATELET COUNT 127 x10^3/uL (163-337); RDW 14.5 % (12.2-16.4)
[2025-02-08] MEDS: ACETAMINOPHEN 1000 MG/100 ML BAG IVPB ONE (12:46)
[2025-02-08] MEDS: SODIUM CHLORIDE 1,000 ML IV STA (12:46)
[2025-02-08 13:06] LABS: POTASSIUM 3.9 mmol/L (3.5-5.1)
[2025-02-08 13:08] LABS: ALBUMIN 3.6 g/dl (3.4-5.0); BLOOD UREA NITROGEN 12.5 mg/dL (7-18); CALCIUM 9.7 mg/dL (8.5-10.1); MAGNESIUM 1.2 mg/dL (1.8-2.4)
[2025-02-08 13:11] LABS: CREATININE 0.9 mg/dL (0.55-1.3)
[2025-02-08 13:12] LABS: PHOSPHOROUS 2.7 mg/dL (2.5-4.9)
[2025-02-08 13:13] LABS: BILIRUBIN,TOTAL 1.2 mg/dL (0.2-1); TOT PROT 8.6 g/dl (6.4-8.2)
[2025-02-08] MEDS ORDERED: MAGNESIUM SULFATE IN WATER 2 GM/50 ML IVPB IVPB ONE (14:22)
[2025-02-08] MEDS: MAGNESIUM SULF 50% (8.12 MEQ/2 ML-1 GM VIAL) IVPB ONE (14:34)
[2025-02-08] MEDS ORDERED: KETOROLAC TROMETHAMINE 15 MG/ML VIAL IVPUSH PRN (17:46)
[2025-02-08] MEDS ORDERED: chlordiazePOXIDE HCL 25 MG CAPSULE PO PRN (17:52)
[2025-02-08] MEDS ORDERED: VANCOMYCIN 1,000 MG in DEXTROSE 5%-WATER - 250 ML IVPB SCH (19:15)
[2025-02-08 19:49] VITALS: BMI 24.7
[2025-02-08] MEDS: VANCOMYCIN/WATER FOR INJ (PEG) 1,000 MG/200 ML BAG IVPB SCH (20:04)
[2025-02-09] MEDS: PIPERACILLIN/TAZOB 3.375 GM 3.375 GM in DEXTROSE 5%-WATER - 50 ML IVPB SCH ×2 (01:39→17:17)
[2025-02-09] MEDS ORDERED: PIPERACILLIN/TAZOB 3.375 GM 3.375 GM in DEXTROSE 5%-WATER - 50 ML IVPB SCH ×2 (02:00→18:00)
[2025-02-09] MEDS: chlordiazePOXIDE HCL 25 MG CAPSULE PO SCH ×2 (05:18→17:16)
[2025-02-09] MEDS: ACETAMINOPHEN 325 MG TABLET (FP) PO PRN (08:34)
[2025-02-09] MEDS: ACETAMINOPHEN 1000 MG/100 ML BAG IVPB ONE (09:09)
[2025-02-09 11:17] LABS: RDW 14.3 % (12.2-16.4)
[2025-02-09 11:19] LABS: HEMATOCRIT 38.8 % (40.1-51.0); HEMOGLOBIN 12.3 g/dL (13.7-17.5); MCHC 31.7 g/dl (32.3-36.5); MEAN CELL VOLUME 85.5 fl (79.0-92.2); MEAN PLT VOLUME 10.4 fl (9.4-12.4); PLATELET COUNT 108 x10^3/uL (163-337)
[2025-02-09 11:43] LABS: POTASSIUM 3.6 mmol/L (3.5-5.1)
[2025-02-09] MEDS: MAGNESIUM 2GM/50ML STERILE WATER IVPB IVPB ONE (11:46)
[2025-02-09 12:09] LABS: BLOOD UREA NITROGEN 12.4 mg/dL (7-18); CALCIUM 9.3 mg/dL (8.5-10.1)
[2025-02-09 12:10] LABS: ALBUMIN 3.2 g/dl (3.4-5.0); MAGNESIUM 1.4 mg/dL (1.8-2.4)
[2025-02-09 12:12] LABS: PHOSPHOROUS 1.9 mg/dL (2.5-4.9)
[2025-02-09 12:14] LABS: BILIRUBIN,TOTAL 1.2 mg/dL (0.2-1); TOT PROT 7.6 g/dl (6.4-8.2)
[2025-02-09] MEDS ORDERED: chlordiazePOXIDE HCL 25 MG CAPSULE PO PRN (13:54)
[2025-02-09] MEDS ORDERED: KETOROLAC TROMETHAMINE 15 MG/ML VIAL IVPUSH PRN (13:54)
[2025-02-09] MEDS: NAPH,MB-DB/K PH,MBDB POWDER PACKET PO SCH (16:03)
[2025-02-09] MEDS: LACTATED RINGERS SOLUTION 1,000 ML/1,000 ML INFUS.BAG IV SCH (16:55)
[2025-02-09] MEDS: INSULIN ASPART SLIDING SCALE (NOVOLOG) 1 VIAL SQ SCH (16:56)
[2025-02-09 18:25] VITALS: RESP 18
[2025-02-09] MEDS ORDERED: VANCOMYCIN 1,000 MG in DEXTROSE 5%-WATER - 250 ML IVPB SCH (19:15)
[2025-02-09] MEDS ORDERED: VANCOMYCIN/WATER FOR INJ (PEG) 1,000 MG/200 ML BAG IVPB SCH (20:00)
[2025-02-10] MEDS ORDERED: chlordiazePOXIDE HCL 25 MG CAPSULE PO SCH (05:00)
[2025-02-10] MEDS: chlordiazePOXIDE HCL 25 MG CAPSULE PO SCH (06:00)
[2025-02-10 10:04] VITALS: BP 101/74; PULSE 103; TEMP 98.4
[2025-02-10] MEDS: PANTOPRAZOLE 40 MG TABLET PO SCH (10:15)
[2025-02-10 12:35] LABS: PH,URINE 7.5 (5.0-8.0); URINE APPEARANCE CLEAR; URINE BILIRUBIN NEGATIVE (NEGATIVE); URINE COLOR YELLOW; URINE GLUCOSE (UA) NEGATIVE (NEGATIVE); URINE KETONE NEGATIVE (NEGATIVE); URINE LEUK ESTERASE NEGATIVE (NEGATIVE); URINE NITRITE NEGATIVE (NEGATIVE); URINE PROTEIN NEGATIVE (NEGATIVE)
[2025-02-10] MEDS ORDERED: BISACODYL 5 MG TABLET.DR (FP) PO ONE (16:00)
[2025-02-10] MEDS ORDERED: PEG 3350/NA SULF BICARB CL/KCL 4000 ML SOLN.RECON PO ONE (17:00)
[2025-02-11] MEDS ORDERED: chlordiazePOXIDE HCL 10 MG CAPSULE PO PRN ×2
[2025-02-11] MEDS ORDERED: chlordiazePOXIDE HCL 10 MG CAPSULE PO SCH ×2 (05:00)
[2025-02-12] MEDS ORDERED: chlordiazePOXIDE HCL 10 MG CAPSULE PO SCH ×2 (05:00)
[2025-02-13] MEDS ORDERED: chlordiazePOXIDE HCL 10 MG CAPSULE PO ONE ×2 (05:00)
== END 2025-02-10 15:35 | disposition left against medical advice (07) | DRG 394 ==
LOC: JER 10:52 → JERBED 17:09 → J5S 19:14 → J4W 02-09 13:35 → OBSVTOIN 02-10 11:31
PROVIDERS: ATTEND Internal Medicine
DX: K60.30 Anal fistula, unspecified (principal); F10.130 Alcohol abuse with withdrawal, uncomplicated; N13.4 Hydroureter; I10 Essential (primary) hypertension; E11.9 Type 2 diabetes mellitus without complications; E83.42 Hypomagnesemia; D69.6 Thrombocytopenia, unspecified; F17.210 Nicotine dependence, cigarettes, uncomplicated; K59.00 Constipation, unspecified
CPT/HCPCS: 0241U-QW; 36415; 74177-TC; 80053; 81003; 82272; 82962; 83036; 83735; 84100; 85025; 85027; 85651; 86140; 87040; 87086; 87902; 99285-25; G0378; Q9967